=== PATIENT | male | born 1955 | race Caucasian/White ===

== ENCOUNTER 2018-10-24 10:43 | Inpatient (IN) | payer MEDICARE, OTHER ==
[2018-10-24 11:43] LABS: Hemoglobin 10.2 g/dL (14.0-18.0); Mean Corpuscular HGB CONC 33.4 g/dL (32.0-36.0); Mean Corpuscular Hemoglobin 32.9 pg (27.0-31.0); Mean Corpuscular Volume 98.5 fL (78.0-98.0); Mean Platelet Volume 7.7 fL (7.4-10.4); Platelet Count 348 thou/uL (130-400); RBC Distribution Width 13.2 % (11.5-14.5); Red Blood Cell (RBC) Count 3.09 mill/uL (4.70-6.10); White Blood Cell (WBC) Count 15.8 thou/uL (4.8-10.8)
[2018-10-24 11:59] LABS: Band 3 % (5-11); Lymphocytes 11 % (21-51); MDiff Complete? YES; Metamyelocyte 1 % (0-0); Monocytes 5 % (0-10); Myelocyte 2 % (0-0); Neutrophil 78 % (42-75); RBC Morphology Normal
[2018-10-24 12:04] LABS: ALT (SGPT) 40 U/L (8-55); AST (SGOT) 17 U/L (5-34); Albumin 3.6 g/dL (3.4-4.8); Alkaline Phosphatase 1060 U/L (40-150); Anion Gap 22 mmol/L (10-20); BUN (Urea Nitrogen) 64 mg/dL (8.4-25.7); Bilirubin, Total 5.9 mg/dL (0.2-1.2); Calc. Creatinine Clearance 0 mL/min (70-130); Carbon Dioxide 21 mmol/L (23-31); Chloride 88 mmol/L (98-107); Estimated GFR-MDRD 24; Globulin 3.6 g/dL (2.4-3.5); Glucose 198 mg/dL (80-115); Lipase 716 U/L (8-78); Protein, Total 7.2 g/dL (5.8-8.1); Sodium 127 mmol/L (136-145)
[2018-10-24] MEDS ORDERED: Cefepime 2 GM VIAL ONE (12:22)
--- NOTE | 2018-10-24 12:35 | ULT ---
RIGHT UPPER QUADRANT ULTRASOUND: HISTORY: Abdominal pain. TECHNIQUE: Multiple longitudinal and transverse images of the right upper quadrant of the abdomen are obtained u sing a MultiHertz curvilinear transducer. Real-time, color-flow and spectral wave-form Doppler analysis is used to evaluate right upper quadrant. FINDINGS: The liver is unremarkable with no evidence of masses or lesions. No evidence of intrahepatic biliary dilatation is seen. The common bile duct is abnormally dilated, measuring up to 1.2 cm in diameter. The gallbladder demonstrates no obvious evidence of wall thickening. Echogenic foci are s een within the gallbladder lumen, compatible with numerous gallstones. No evidence of pericholecystic fluid is seen. The right kidney contains an area of mixed echogenicity in the upper pole, possibly representing a right renal mass. Correlate with CT. The inferior vena cava is not well visualized. No evidence of ascites is seen. IMPRESSION: 1. Cholelithiasis with possible choledocholithiasis. 2: Area of heterogeneous density, upper pole right kidney, possibly representing a right renal mass. Transcribed Date/Time: 10/24/2018 2:15 PM
[2018-10-24] MEDS ORDERED: metroNIDAZOLE 500 MG/100 ML BAG ONE (13:08)
--- NOTE | 2018-10-24 14:01 | RAD ---
PORTABLE CHEST: 10/24/2018 PROVIDED CLINICAL HISTORY: Abdominal pain. COMPARISON: None. FINDINGS: Evaluation is limited by patient body habitus. The cardiac silhouette appears enlarged. The lungs are hypoinflated but grossly clear. There is no pleural fluid or pneumothorax apparent. IMPRESSION: Hypoinflated examination without evidence for an acute cardiopulmonary process. POS: [facility]
[2018-10-24] MEDS ORDERED: Dextrose 50% Abboject 50 ML SYRINGE SLOW IVP PRN (14:10)
[2018-10-24] MEDS ORDERED: Dextrose 5% in Water 1,000 ML IV PRN (14:10)
[2018-10-24] MEDS ORDERED: Ondansetron PF 4 MG/2 ML Vial ONE (14:37)
[2018-10-24] MEDS ORDERED: Calcium Chloride 1 GM/10 ML Abboject SYRINGE ONE (14:37)
[2018-10-24] MEDS ORDERED: Phenylephrine HCL 10 MG/ML VIAL ONE (14:37)
[2018-10-24] MEDS ORDERED: ePHEDrine 50 MG/ML VIAL ONE (14:37)
[2018-10-24] MEDS ORDERED: Rocuronium Bromide 10 MG/ML (10ML VIAL) ONE (14:37)
[2018-10-24] MEDS ORDERED: PROPOFOL 200 MG/20 ML VIAL ONE (14:37)
[2018-10-24] MEDS ORDERED: Lidocaine 1% PF 5 ML VIAL ONE (14:37)
[2018-10-24] MEDS ORDERED: Glycopyrrolate 0.2 MG/ML 5 ML SYRINGE ONE (14:37)
[2018-10-24] MEDS ORDERED: Dexamethasone 20 MG/5 ML VIAL ONE (14:37)
[2018-10-24 14:54] LABS: PTT 26.7 SEC (22.9-36.1); Prothrombin Time 13.4 SEC (12.0-14.7)
[2018-10-24 16:20] LABS: HBSAg Index 0.36 S/CO (0-0.99); Hep B Surf Ag Non-Reactive S/CO (NonReactive); Hep C IgG Ab Non-Reactive (NonReactive); Hep C Index 0.07 S/CO (0-0.79)
[2018-10-24 16:22] LABS: HBCM Index 0.09 S/CO (0-0.79); Hep A IgM AB Non-Reactive (NonReactive); Hep A IgM S/CO 0.13 S/CO (0-0.79); Hepatitis B Core IgM Abs Non-Reactive (NonReactive)
[2018-10-24] MEDS: Sodium Chloride 0.9% 1,000 ML IV SCH ×2 (16:23→21:39)
[2018-10-24 16:27] LABS: Anion Gap 18 mmol/L (10-20); BUN (Urea Nitrogen) 64 mg/dL (8.4-25.7); Calc. Creatinine Clearance 59 mL/min (70-130); Calcium 8.3 mg/dL (7.8-10.44); Carbon Dioxide 21 mmol/L (23-31); Chloride 94 mmol/L (98-107); Estimated GFR-MDRD 27; Glucose 168 mg/dL (80-115); Potassium 4.2 mmol/L (3.5-5.1); Sodium 129 mmol/L (136-145); Triglycerides 178 mg/dL (Less than 150)
[2018-10-24 16:40] LABS: Free T4 (Free Thyroxine) 1.1 ng/dL (0.70-1.48); Thyroid Stimulating Hormone 0.7644 uIU/mL (0.35-4.94)
--- NOTE | 2018-10-24 17:16 | CT ---
CT Abdomen Pelvis WO Con 10/24/2018 4:28 PM HISTORY: Abdominal pain COMPARISON: None. Technique: Multiple contiguous axial CT images are obtained through the abdomen and pelvis without IV contrast. Coronal reformats are provided. FINDINGS: This examination is limited for the evaluation of solid organs and vascular structures due to the lac k of intravenous contrast. Lower Chest: Atelectasis is present at the right lung base. A calcification is also seen at the right lung bases which may represent either a pleural-based calcification or calcified granuloma. Vascular calcifications are seen in the coronary arteries as well as involving the visualized thoraci c aorta. Abdomen: Liver: within normal limits. Gallbladder: Within normal limits for CT imaging. Pancreas: There is motion artifact, there is questionable minimal inflammatory stranding adjacent to the pancreatic head. Spleen: within normal limits. Adrenals: within normal limits. Kidneys: There is a lobulated cystic mass superior pole right kidney measuring 5.7 cm x 5.1 cm. A few linear septations as well as punctate calcifications are associated with this lesion. This cannot be further characterized on this exam. No hydronephrosis or renal calculus is seen bilaterally. Ureters: No ureteral calculus is seen.. Pelvis: Urinary bladder: within normal limits. Reproductive Organs: No pelvic masses. Lymph Nodes: No enlarged lymph nodes. Bowel: Small amount of retained fecal material seen throughout the colon. Loops of small bowel are no rmal in caliber. Appendix: The appendix is normal in caliber. Peritoneum: No free fluid, free air, or fluid collection. Retroperitoneum: within normal limits. Vessels: Vascular calcifications are seen abdominal aorta involving the iliac arteries.. Abdominal Wall: Tiny fat-containing umbilical hernia is present Bones: Multilevel degenerative changes are seen within the visualized thoracic as well as lumbar spin e. IMPRESSION: 1. Question of minimal stranding adjacent to the pancreatic head. Findings could be related to pancre atitis. Correlation with pancreatic enzymes is recommended. Question of mild inflammatory stranding could be related to motion in this region. 2. Lobulated superior pole right renal cystic lesion/mass. CT abdomen with and without IV contrast is recommended for further characterization to ensure that there is no enhancement. 3. Elevation right hemidiaphragm with volume loss right lung base. 4. No renal or ureteral calculi are seen bilaterally.
[2018-10-24] MEDS ORDERED: Iothalamate Meglumine 60% 50 ML VIAL FS ONE (17:39)
--- NOTE | 2018-10-24 18:10 | HP ---
SURGERY ATTENDING: Dr. Riccardo Small. HISTORY OF PRESENT ILLNESS: Mr. Castillo is a 63-year-old male who presented with a past medical history of hypertension, diabetes, hospitalization for rhabdomyolysis 5 years ago, who has had indolent and recurrent low level abdominal pain for nearly a year, associated with subjective fevers, generalized malaise, acutely worse over the last two weeks. He has also had 100-pound weight loss. He had a colonoscopy two years ago secondary to hematochezia without any findings. He does endorse some dyspnea on exertion recently. The patient's PCP found elevated liver profile including elevated bilirubin, alkaline phosphatase that accompanied with his generalized malaise and weakness, he was brought to the emergency department for further evaluation. In the emergency department, the patient was found to be hypotensive, heart rate was normal. He had hyperglycemia, acute kidney injury, alkaline phosphatase was over 1000, bilirubin was over 5. The patient is jaundiced. Creatinine was 2.7, producing minimal urine. He had a leukocytosis. Lipase was 700. Ultrasound demonstrated a dilated common bile duct with cholelithiasis, concern for choledocholithiasis. He was given cefepime and Flagyl in the emergency department and we were consulted for further management. I have seen the patient in the emergency department. I evaluated him, reviewed his imaging, discussed the case with Emergency Department physician. I have ordered 2 L of fluid. His MAP is 64 upon my arrival, systolic in the 80s, heart rates in the 70s, saturating well on room air. Chest x-rays reviewed. EKGs reviewed. Does appear to have biliary obstruction based on laboratory data. The patient is nontoxic appearing, however, he really has no abdominal pain for me, I have ordered additional liter of fluid as well as maintenance fluids. There was a mention of a renal mass. Therefore, a dedicated renal ultrasound has been ordered. Requested a repeat lactate as his initial lactic acid was 3. The patient states that he has no chest pain, no shortness of air at this time. He really has no abdominal pain at this time. He has had no diarrhea. No nausea. No vomiting. No rashes. No lower extremity edema. Just the abdominal pain that comes and goes, worse postprandially. REVIEW OF SYSTEMS: Pertinent positive and negative as per the HPI, otherwise regarded as negative. PAST MEDICAL HISTORY: Hypertension, diabetes, and rhabdomyolysis. Last oral intake was last night. PAST SURGICAL HISTORY: Denies all. ALLERGIES: TO PENICILLIN CAUSES A RASH. SOCIAL HISTORY: The patient is a lifelong nonsmoker. He dips one dip snuff daily. Alcohol; he drinks 1 to 2 rum drinks daily. Uses a cane to get about. Lives in [place], [place]. His daughter is one of the nurses here. 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 FAMILY HISTORY: His mother of a brain tumor at age 66. His father in his 30s or 40s of an CT. MEDICATIONS: 1. Metformin 1000 mg b.i.d. 2. Aspirin 81 mg daily. 3. Amlodipine 5 mg daily. 4. Protonix 40 mg daily. 5. Lisinopril/hydrochlorothiazide daily. 6. Simvastatin 20 mg daily. 7. Atenolol 50 mg daily. PHYSICAL EXAMINATION: VITAL SIGNS: Temperature is 97.5, MAP of 64, heart rate is 68, breathing 18 times per minute, saturating 100% on room air. GENERAL: He is an obese 63-year-old male sitting up in bed, no acute distress. HEENT: Normocephalic, atraumatic. Trachea is midline. He does have scleral icterus appreciated. Pupils are equal and midline. His mucous membranes are dry. NECK: He has no JVD and trachea is midline. RESPIRATORY: Equal rise and fall, bilateral breath sounds. Clear to auscultation upper and lower bilaterally. CARDIOVASCULAR: Regular rate and rhythm. No murmur. He has strong pulses and no edema. ABDOMEN: Obese, but is soft. He has no tenderness. No guarding. No rigidity. Specifically, he has no pain with deep palpation of the right upper quadrant. He has no CVA tenderness. Pelvis is stable. MUSCULOSKELETAL: The patient is able to move his extremities. He has abrasion about the left knee. SKIN: Jaundiced, warm and dry. PSYCH: Normal mood and affect. NEUROLOGIC: Alert and oriented to person, place, time, and event. Moves all of his extremities. LYMPHATIC: Unable to appreciate any supraclavicular, cervical, anterior or posterior chain lymphadenopathy. No umbilical lymphadenopathy appreciated. DIAGNOSTIC DATA: Laboratory date: White blood cell count of 15,800 and platelets of 348. Hemoglobin and hematocrit 10.2 and 30.5 respectively. Chemistry; sodium is 127, potassium is 4.0, chloride is 88, CO2 of 21, creatinine is 2.71, BUN is 64, anion gap of 22, glucose is 198, lactic acid 3.0, calcium 10.0, total bilirubin is 5.9, AST and ALT 17 and 40 respectively, alkaline phosphatase is 1060. BNP 274, lipase of 716. Imaging data from today, one view chest x-ray is limited by technique, but does not show any acute processes. Abdominal ultrasound today shows possibly a right renal mass, also has cholelithiasis with possible choledocholithiasis. CBD is 1.2 cm. ASSESSMENT: 1. Severe sepsis without evidence of septic shock, likely secondary to intraabdominal pathology. 2. Possible choledocholithiasis. 3. Obstructive biliary disease- #2 above vs neoplastic in nature. 4. Hyperglycemia in the setting of diabetes. 5. Acute pancreatitis, likely secondary to #3 above. 6. Acute kidney failure. 7. High gap metabolic acidosis. 8. Hypochloremic hyponatremia. PLAN: 1. We will admit the patient to [facility]. 2. Additional 1 L of fluid for a total of three followed by normal saline at 100 mL/h. 3. We will repeat BMP at that time. 4. CT abdomen and pelvis without contrast. 5. GI discussed the case with Dr. Figueredo. We appreciate recommendations. 6. Continue cefepime and Flagyl for now. 7. Blood cultures x2. 8. Obtain coag studies. 9. Check TSH and free T4 given hyponatremia. 10. Check cortisol level. 11. Check hepatitis panel. 12. Electrolyte replacement protocol as needed, utilizing caution given renal failure. 13. Repeat lactate now for sepsis protocol. 14. Check LDH. 15. Point of care glucose and sliding scale insulin. 16. N.p.o. 17. Obtain blood cultures x2. 18. I have discussed the central venous access with the patient. We will maintain a mean arterial pressure, if greater than 65, if he does dip again, likely will need the same and vasopressors. 19. Diet will be n.p.o. 20. Activity is going to be rest. 21. Full code. 22. Access for peripheral IV. 23. Prophylaxis will be famotidine and SCDs, with holding chemical DVT prophylaxis secondary to possible procedure. 24. Obtain bilateral renal ultrasound. DISPOSITION: [facility] for now. I have updated the patient and the patient's daughter at the bedside. I have answered all questions. I have coordinated the care with the [facility] staff, ER staff, GI. The patient was seen by Dr. Small, can be updated as needed. Job ID: [id number] MTDD
[2018-10-24] MEDS ORDERED: Indomethacin 50 MG SUPP ONE (18:27)
[2018-10-24] MEDS ORDERED: Fentanyl 100 MCG/2 ML VIAL ONE (18:28)
[2018-10-24] MEDS ORDERED: Promethazine HCl 25 MG/ML VIAL SLOW IVP PRN (19:55)
[2018-10-24] MEDS ORDERED: Ondansetron HCl/PF 4 MG/2 ML Vial IVP PRN (19:55)
[2018-10-24] MEDS ORDERED: Promethazine HCl 25 MG/ML VIAL IM PRN (19:55)
--- NOTE | 2018-10-24 20:51 | RAD ---
ERCP: 10/24/18 HISTORY: Abdominal pain. Question of pancreatitis. Three views are presented for interpretation. These show filling of a borderline sized common bile duct. The distal common duct is never well opaci fied. I do not see any definite stones. IMPRESSION: Borderline size common duct. POS: [facility]
[2018-10-24] MEDS: Cefepime 2 GM in Sodium Chloride 0.9% 100 ML IVPB SCH (21:36)
[2018-10-24] MEDS: metroNIDAZOLE 500 MG in Premix Bag 1 BAG IVPB SCH (21:37)
--- NOTE | 2018-10-24 21:47 | CON ---
DATE OF CONSULTATION: 10/24/2018 REASON FOR CONSULTATION: Concern for cholangitis, requesting ERCP. HISTORY OF PRESENT ILLNESS: Mr. Christian Castillo is a very pleasant 63-year-old gentleman with a history of obesity, hypertension, and hyperlipidemia. He has seen Dr. Jones for GI in the past. He had a colonoscopy about 2 years ago, which was evidently unremarkable. He has no prior history of pancreatitis, liver or gallbladder disease. He states that over about the past 16 months, he has gradually lost 100 pounds. This has been essentially unintentional. For several months, he has had intermittent waxing and waning upper abdominal pain and nausea. This has been especially prominent over the past 3-4 months though there has been no vomiting. Just over the past couple of weeks, he has noticed that he has been a bit jaundiced. The abdominal pain and nausea were more significant within the past week. He had outpatient labs, which demonstrated elevation in LFTs and that prompted his admission through the emergency department today. He has been evaluated by the surgical service. He has a total bilirubin elevation to 5.9 with alkaline phosphatase to 1060. An abdominal ultrasound demonstrated cholelithiasis and common bile duct dilation to 1.2 cm. The patient actually presented significantly hypotensive and was treated with aggressive IV fluid resuscitation. Initial blood pressure was 70/52, systolic pressures now above 100. He was admitted to the [facility]. He is receiving ceftriaxone and Flagyl. We are consulted due to concern for his presentation with sepsis and obstructive jaundice, with concern for cholangitis. REVIEW OF SYSTEMS: Full review of systems including constitutional, head, eyes, ears, nose, throat, GI, , cardiovascular, respiratory, musculoskeletal, neurologic systems is negative except as noted in the HPI. PAST MEDICAL HISTORY: Obesity, hypertension, hyperlipidemia, GERD. Colonoscopy [address] Jones, evidently unremarkable. ALLERGIES: PENICILLIN. MEDICATIONS: 1. Atenolol. 2. Protonix 40 mg daily. 3. Metformin. 4. Aspirin. 5. Amlodipine. 6. Zocor. 7. Lisinopril/hydrochlorothiazide. SOCIAL HISTORY: He does drink a little bit of alcohol daily less than 5 drinks per day. He chews tobacco. FAMILY HISTORY: Noncontributory. PHYSICAL EXAMINATION: VITAL SIGNS: Temperature 97.5, blood pressure currently 102/76, initially blood pressure was 70/52, pulse 81, 100% oxygen saturation on room air. GENERAL: Obese 63-year-old man. He is grossly jaundiced. He is in no acute distress. MENTAL: Alert and oriented. EYES: He has bilateral scleral icterus. Extraocular movements intact. ENT: Mucous membranes moist. No oral lesions. LYMPHATICS: No submandibular or supraclavicular lymphadenopathy. ENDOCRINE: Thyroid nontender to palpation. HEART: Regular rate and rhythm. LUNGS: Clear to auscultation bilaterally. ABDOMEN: Obese, bowel sounds present, soft, some mild tenderness to palpation across the upper abdomen, but no guarding or rebound tenderness. EXTREMITIES: No peripheral edema. VESSELS: Radial pulses 2+ bilaterally. NEUROLOGIC: Cranial nerves 2-12 intact bilaterally. No focal deficits. LABORATORY STUDIES: WBC is elevated to 15.8, hemoglobin 10.2, platelets 348. INR 1.0, BUN 64, creatinine 2.44, total bilirubin 5.9, alkaline phosphatase 1060, AST 17, ALT 40, albumin 3.6. INR is 1.0, BUN 64, creatinine 2.44. Lactic acid initially 3.0, now down to 1.4. Lipase elevated to 716. Troponin negative. Viral hepatitis serologies all negative. IMAGING STUDIES: 1. Abdominal ultrasound shows cholelithiasis and common bile duct dilation to 1.2 cm. There is a possible right renal mass on the ultrasound. 2. Chest x-ray shows no acute processes. 3. His CT of the abdomen and pelvis demonstrates some minimal stranding around the pancreatic head. There is a 5.7 cm right-sided renal mass. No comment on biliary dilation on the CT. ASSESSMENT/PLAN: 1. Obstructive jaundice. 2. Cholelithiasis with possible choledocholithiasis, based on biliary dilation. 3. Sepsis. 4. Unintentional weight loss. The patient's presentation with sepsis in the context of significant liver function tests elevation and upper abdominal pain, is all concerning for possible cholangitis. I discussed with the patient that endoscopic retrograde cholangiopancreatography is indicated on an urgent basis to decompress the biliary system. He has responded well to initial resuscitation and antibiotics should be continued. Possibilities would include choledocholithiasis, retained common bile duct stone, versus more worrisome process such as pancreatic or biliary malignancy or ampullary stenosis. We will further evaluate on endoscopic retrograde cholangiopancreatography, which we are planning for later this evening. Until then, continue antibiotics and supportive care. Thank you for the consultation. Please call anytime with questions or concerns. Job ID: [id number]
--- NOTE | 2018-10-25 01:26 | OP ---
DATE OF PROCEDURE: 10/24/2018 ASSEMBLER CAMPER SURGEON: None. PROCEDURES PERFORMED: Endoscopic retrograde cholangiopancreatography with biliary sphincterotomy. INDICATION: A 63-year-old man with obstructive jaundice based on elevated total bilirubin and dilated common bile duct, who presented with sepsis, all concerning for potential cholangitis with choledocholithiasis. MEDICATIONS: 1. See Anesthesia record. 2. Indomethacin 100 mg per rectum. FINDINGS: After discussion of the risks, benefits, and alternatives of the procedure, informed consent was obtained and witnessed. Pre-endoscopic cardiopulmonary examination was satisfactory. Time-out was performed before sedation was achieved. Sedation was achieved with Anesthesia assistance in the endoscopy unit. The patient was placed in a semi-prone position on the fluoroscopy table. A Pentax adult side-viewing duodenoscope was advanced down the mouth, past the esophagus and stomach, and into the second portion of the duodenum. Indirect views of the gastric and duodenal mucosa were normal. The ampulla was brought into view with the endoscope in the short position. The ampulla was prominent in appearance, but otherwise appears normal. Using a triple lumen dome-tipped sphincterotome and a 0.035 guidewire, I selectively cannulated the common bile duct. The guidewire was passed up into the right intrahepatic system. Cholangiogram was then performed. Cholangiogram demonstrated a dilated common bile duct throughout its entire length, dilated up to at least 15 mm. The cystic duct did not fill. The right and left intrahepatic ducts did fill and did not appear to be dilated. There was no filling defect visualized throughout the biliary system that I can see. At this point, the sphincterotome was withdrawn to the level of the ampulla. A generous biliary sphincterotomy was then performed. Following sphincterotomy, we performed a wire exchange, exchanging the sphincterotome for a 12 to 15 mm extraction balloon. Multiple passes were made to sweep the common bile duct with the balloon fully inflated. The balloon passed easily through the ampulla and through the entire common bile duct. There were no stones or sludge extracted, just clear appearing bile. Occlusion cholangiogram was then performed, and this again just demonstrated a dilated common bile duct without any filling defects. Given the good result with the sphincterotomy and the ease with which the balloon passed through the entire common bile duct and the ampulla, I elected not to place any biliary stent with this procedure. The working apparatus was completely withdrawn. The endoscope was completely withdrawn suctioning out excess air and fluid. Postprocedure fluoroscopic images demonstrated no retroperitoneal or subdiaphragmatic free air. The patient tolerated the procedure well. There were no immediate postprocedure complications. IMPRESSION: 1. Dilated common bile duct to 15 mm throughout most of its length, with no evidence of any filling defect or stricture visualized. 2. Prominent but otherwise normal-appearing ampulla. 3. Multiple balloon sweeps of the common bile duct performed, with only clear bile extracted, balloon passing easily through the entire common bile duct and ampulla. RECOMMENDATIONS: 1. Continue antibiotics for now. 2. Trend the LFTs. 3. Surgery evaluation. The patient will need cholecystectomy at some point. Please call anytime with questions or concerns. Job ID: [id number]
[2018-10-25] MEDS: metroNIDAZOLE 500 MG in Premix Bag 1 BAG IVPB SCH ×2 (05:26→14:29)
[2018-10-25 05:27] LABS: Band 4 % (5-11); Hemoglobin 8.2 g/dL (14.0-18.0); Lymphocytes 12 % (21-51); MDiff Complete? YES; Mean Corpuscular HGB CONC 33.7 g/dL (32.0-36.0); Mean Corpuscular Hemoglobin 33.8 pg (27.0-31.0); Mean Platelet Volume 6.9 fL (7.4-10.4); Monocytes 3 % (0-10); Neutrophil 81 % (42-75); Platelet Count 288 thou/uL (130-400); Platelet Morphology Comment Appears Adequate; RBC Distribution Width 13.1 % (11.5-14.5); Red Blood Cell (RBC) Count 2.42 mill/uL (4.70-6.10); White Blood Cell (WBC) Count 11.2 thou/uL (4.8-10.8)
[2018-10-25] MEDS: HumaLOG 300 UNITS/3 ML VIAL SC PRN ×3 (05:27→16:16)
[2018-10-25] MEDS: Cefepime 2 GM in Sodium Chloride 0.9% 100 ML IVPB SCH ×2 (05:27→14:29)
[2018-10-25 05:34] LABS: ALT (SGPT) 29 U/L (8-55); AST (SGOT) 13 U/L (5-34); Albumin 3.2 g/dL (3.4-4.8); Alkaline Phosphatase 759 U/L (40-150); Anion Gap 22 mmol/L (10-20); BUN (Urea Nitrogen) 67 mg/dL (8.4-25.7); Bilirubin, Total 3.6 mg/dL (0.2-1.2); Calc. Creatinine Clearance 65 mL/min (70-130); Calcium 8.8 mg/dL (7.8-10.44); Carbon Dioxide 16 mmol/L (23-31); Chloride 97 mmol/L (98-107); Estimated GFR-MDRD 30; Globulin 3.1 g/dL (2.4-3.5); Glucose 230 mg/dL (80-115); Lipase 223 U/L (8-78); Potassium 4.6 mmol/L (3.5-5.1); Protein, Total 6.3 g/dL (5.8-8.1); Sodium 130 mmol/L (136-145)
[2018-10-25 05:41] VITALS: BMI 37.8
--- NOTE | 2018-10-25 08:40 | ULT ---
RENAL SONOGRAM: HISTORY: Kidney mass. COMPARISON: CT abdomen from 10/24/2018 FINDINGS: The right kidney measures up to 12.2 cm in length. At the superior pole, a partially exophytic, hete rogeneous, hypoechoic mass measures up to 5.4 x 4.9 x 4.7 cm in greatest diameters. It is not defini tely cystic on sonogram. No hydronephrosis. Diffuse cortical thinning. The left kidney is 12.2 cm with diffuse cortical thinning. No focal mass or hydronephrosis apparent. The urinary bladder is distended without focal abnormality. IMPRESSION: Heterogeneous mass at the superior pole, right kidney, persists. Favored to not be cystic on sonogra m. Renal cell neoplasm is of primary concern. Please considered dedicated CT kidneys, with and with out IV contrast, for better characterization. If intravenous contrast cannot be given, please consid er MRI of the kidneys. POS: [facility]
[2018-10-25] MEDS: Famotidine 20 MG TAB PO SCH (09:16)
[2018-10-25] MEDS: Thiamine 100 MG TAB PO SCH (09:16)
[2018-10-25] MEDS: Folic Acid 1 MG TAB PO SCH (09:16)
[2018-10-25] MEDS: Multivit, Therapeutic 1 TAB PO SCH (09:16)
[2018-10-25] MEDS ORDERED: Dextrose 50% Abboject 50 ML SYRINGE SLOW IVP PRN (09:52)
[2018-10-25] MEDS ORDERED: Dextrose 5% in Water 1,000 ML IV PRN (09:52)
[2018-10-25 12:31] LABS: Iron 93 ug/dL (65-175); Iron Binding Capacity, Total 155 mcg/dL (261-462)
[2018-10-25] MEDS: Sodium Chloride 0.9% 1,000 ML IV SCH (13:08)
[2018-10-25] MEDS: Oxazepam 10 MG CAP PO SCH (14:29)
--- NOTE | 2018-10-25 17:55 | CON ---
DATE OF CONSULTATION: CONSULTING PROVIDER: Garo Howard MD. Dr. Small, Trauma Service. REASON FOR CONSULTATION: Acute on chronic kidney disease. IMPRESSION: 1. Acute on chronic kidney disease. This is likely multifactorial including, but not limited to, the following;. a. Some component of prerenal state compounded by potential obstructive uropathy. b. Cytokine mediated injury in the context of infection. c. Progression of baseline chronic kidney disease. 2. Exophytic mass. PLAN: 1. Renally dose all medications for low GFR. 2. Re-evaluate renal function in this patient by checking the phosphorus and the parathyroid hormone. 3. Iron studies due to significant iron deficiency in this patient. 4. Continue gentle rehydration for now. HISTORY OF PRESENT ILLNESS: A 63-year-old gentleman who presented here with abdominal discomfort, got diagnosed with gallbladder problem. However, the patient as per laboratory investigation was noted with decreased GFR. As a result of these findings, decision has been taken to involve Renal in the management of this case. PAST MEDICAL HISTORY: Significant for obesity, hypertension, dyslipidemia, and reflux disease. MEDICATIONS: Reviewed and as documented on [employer]. ALLERGIES: NO KNOWN DRUG ALLERGIES. FAMILY HISTORY: Not significantly related to present illness. SOCIAL HISTORY: Significant for alcohol use. REVIEW OF SYSTEMS: As documented in the body of the history. All other systems were reviewed and found not to be significantly related to present illness. PHYSICAL EXAMINATION: GENERAL: The patient was found to be ill looking. VITAL SIGNS: Noted with the following vital signs; afebrile, blood pressure 123/67, pulse 78, respiratory rate of 18, and O2 saturations are 99%. HEENT: Remarkable for dry oral mucosa. No conjunctival injection or icterus. NECK: Supple. CARDIOVASCULAR: First and second heart sounds were heard. RESPIRATORY: Shows some rales anteriorly. DIGESTIVE: Revealed a benign abdomen. Positive bowel sounds. EXTREMITIES: No peripheral edema. SKIN: No new gross rash. LYMPHATICS: No peripheral lymphadenopathy. SUMMARY: A 63-year-old gentleman who presented here with abdominal discomfort in the context of gallbladder disease, incidentally noted with elevated creatinine, thus the need for renal consultation. ADDENDUM: In terms of all the suspicious lesion found on ultrasound. The imaging study of choice will be MRI unless the renal function improves, status post Bonds catheterization in view of potential obstructive uropathy and significant improvement in the renal function noted. If significant improvement in the renal function is noted, then the patient can safely undergo CT scan with IV contrast. Otherwise, the patient stands significant risk of deterioration in the renal function if exposed to contrast at this point. Job ID: [id number]
--- NOTE | 2018-10-25 19:25 | PRG ---
DATE OF SERVICE: 10/25/2018 SUBJECTIVE: Mr. Christian Castillo is a 63-year-old male, who was admitted, hospital day 2 for abdominal pain, concern for choledocholithiasis and pancreatitis. Additionally, the patient was found to have a renal mass. The patient underwent ERCP last night. Upon my evaluation this morning, the patient reports minimal abdominal pain. He vocalized no other complaints. OBJECTIVE: VITAL SIGNS: Temperature, afebrile; blood pressure 104/51; respiratory rate of 19; pulse 82; O2 saturation 100% on room air. GENERAL: Elderly appearing male, in no acute distress, resting in bed. PULMONARY: Normal work of breathing. Symmetric rise. CARDIOVASCULAR: Regular rate and rhythm. GI: Abdomen is soft, nontender to palpation. No signs of peritonitis. No palpable organomegaly. MUSCULOSKELETAL: Moves all extremities x4. NEUROLOGIC: No focal deficit noted. LABORATORY FINDINGS: WBC 11.2, hemoglobin 8.2, hematocrit 24.2, platelet count 288. Sodium 130, potassium 4.6, chloride 97, carbon dioxide 16, BUN 67, creatinine 2.23, glucose 230, AST 13, ALT 29, alkaline phosphatase 759, T bilirubin 3.6. Lipase 223. RADIOGRAPHIC FINDINGS: Renal ultrasound demonstrated a mass on the superior pole of the right kidney, concerning for renal cell carcinoma. ASSESSMENT: 1. Abdominal pain with elevated LFTs, likely multifactorial. 2. Possible cholecystitis versus obstructive biliary disease secondary to neoplasm. 3. History of diabetes with hyperglycemia. 4. Acute pancreatitis, improving. 5. Acute renal failure, mild improvement. 6. Hypochloremic hyponatremia. 7. Metabolic acidosis. PLAN: Continue IV fluid and hydration. The patient can have a clear liquid diet for now. Aggressive sliding scale insulin. Hospital Medicine consult for medical management given multiple comorbidities. Nephrology consult for acute renal failure. Urology consult for renal mass. Echocardiogram to evaluate for any underlying cardiac dysfunction given likelihood of surgical intervention. Continue to monitor urine output. Plan of care was discussed with the patient and family at bedside, and all questions were answered at the time of this dictation. The patient's plan was discussed with the patient's nurse. The patient was seen and evaluated with Dr. Small. Job ID: [id number] [facility]
[2018-10-25] MEDS: Heparin 5,000 UNITS/ML VIAL SC SCH (20:19)
[2018-10-25] MEDS: Insulin Regular 300 UNITS/3 ML VIAL SC PRN (20:23)
[2018-10-25] MEDS ORDERED: Insulin Glargine 15 UNITS in Pre-Filled Syringe SC SCH (21:00)
[2018-10-26] MEDS ORDERED: metroNIDAZOLE 500 MG/100 ML BAG ONE (05:15)
--- NOTE | 2018-10-26 08:26 | CON ---
DATE OF CONSULTATION: REASON FOR CONSULTATION: Medical management. REASON FOR ADMISSION: Abdominal pain and weight loss. HISTORY OF PRESENT ILLNESS: Mr. Castillo is a pleasant 63-year-old gentleman, who has a history of hypertension and diabetes mellitus. He says over the course of the last few months he has been having abdominal pain as well as nausea typically after he eats. He says that in the last year or so he has lost about 100 pounds. He says that he feels sick and has had no appetite and has had subjective fever off and on. He came to the ER. In his initial presentation, he was hypotensive and found to be jaundiced. He also had an alkaline phosphatase greater than a 1000, as well as acute kidney injury. An abdominal ultrasound was done, which demonstrated a dilated common duct, which was concerning for choledocholithiasis. He was admitted to the Surgery Service and GI was consulted. He underwent ERCP as well as sphincterotomy and currently he says his symptoms are actually better. He says the abdominal pain is improved, but he still has no appetite. He had pretty much daily nausea, which is actually improved as well. Also during his workup, it was found that he had a fairly large mass on the superior pole of the right kidney and we are being consulted for medical management. REVIEW OF SYSTEMS: CONSTITUTIONAL: There has been subjective fever, but no chills, no night sweats. He has had significant weight loss of 100 pounds over the last year. HEENT: No visual changes. No headaches. No dizziness. No sore throat. No rhinorrhea. No neck pain. No adenopathy. PULMONARY: No hemoptysis. No cough. No wheezing. CARDIOVASCULAR: He denies any chest pain. No shortness of breath. No PND. No orthopnea. GASTROINTESTINAL: As in the history of present illness. He also mentions alternating constipation and diarrhea, but no hematemesis, no melena. GENITOURINARY: No urinary frequency, hematuria or hesitancy. MUSCULOSKELETAL: He does complain of pain in his right knee. He says he needs a "knee replacement" but no joint pains. No swelling. SKIN AND INTEGUMENT: No skin changes or rash. PSYCHIATRIC: No symptoms of anxiety or depression. ENDOCRINE: No heat or cold intolerance. No polyuria. No polydipsia. PAST MEDICAL HISTORY: Significant for hypertension and diabetes mellitus type 2. PAST SURGICAL HISTORY: Negative. ALLERGIES: PENICILLIN, WHICH CAUSES A RASH. SOCIAL HISTORY: He is a nonsmoker. He drinks about 1-2 rum drinks a day. He is a former trash collector truck driver. He is and has 2 children and his daughter is a nurse here on the 3rd floor. FAMILY HISTORY: Significant for his mother having a brain tumor and dying at age 66. Father had an [place]. MEDICATIONS: Include: 1. Simvastatin 20 mg daily. 2. Protonix 40 mg daily. 3. Metformin 1000 mg twice daily. 4. Lisinopril/hydrochlorothiazide 20/12.5 daily. 5. Atenolol 50 mg daily. 6. Aspirin 81 mg daily. 7. Amlodipine 5 mg daily. PHYSICAL EXAMINATION: GENERAL: He is alert and oriented. He appears to be in no acute distress. He is well developed and well nourished. VITAL SIGNS: Blood pressure was 96/60, heart rate 80, respiratory rate of 22, temperature is 97.2. HEENT: His pupils are equal, round, and reactive. Extraocular muscles are intact. Sclerae mildly jaundiced. Throat, there is no erythema, no exudates. NECK: There is no adenopathy, no bruits. LUNGS: Clear to auscultation. There is no wheezing, no rales, no rhonchi. CARDIOVASCULAR: He has a normal S1, S2. I did not appreciate an S3 or S4. No murmurs, clicks or rubs. ABDOMEN: Obese, it is soft, it is nontender and nondistended. Positive for bowel sounds. No rebound. No guarding. No organomegaly. EXTREMITIES: He has some non-pitting edema in both lower extremities, primarily in the calves. No calf tenderness. No erythema or warmth. NEUROLOGIC: His cranial nerves 2 through 12 are grossly intact. Muscle strength is 5/5. SKIN AND INTEGUMENT: No skin changes. No rash. LABORATORY DATA: From today, he had a sodium of 130, potassium 4.6, chloride 97, CO2 is 16, BUN of 67, creatinine 2.23, glucose is 230. He had a white blood cell count of 11.2, hemoglobin 8.2, hematocrit is 24.2, and platelet count is 288. INR is 1.0. ASSESSMENT: This is a pleasant 63-year-old gentleman, who is currently being evaluated for jaundice as well as abdominal pain and weight loss, which is currently being evaluated by Gastroenterology as well as General Surgery. He is status post endoscopic retrograde cholangiopancreatography with sphincterotomy and will likely need to have a cholecystectomy at some time as his symptoms are suspicious for gallbladder disease. This is being managed by GI. 1. Diabetes mellitus. We will place him on a low-dose long-acting insulin as well as a sliding scale. This is while he is taking clear liquids. This may need to be adjusted later. If his renal function improves, then likely he can be restarted on metformin. 2. Hypertension. Currently his blood pressure is low; therefore, we will hold his antihypertensive medications. 3. Deep venous thrombosis prophylaxis. This will be done with subcutaneous heparin and he will also be placed on gastrointestinal prophylaxis. 4. Renal mass. Urology has been consulted for this evaluation. The patient also has a mild hyponatremia likely due to renal disease. We will continue gentle hydration for this and hopefully, this should correct. We will be happy to follow along with you. Job ID: [id number]
[2018-10-26] MEDS ORDERED: Clindamycin/D5W 600 mg/50 ml Premix Bag ONE (08:53)
[2018-10-26] MEDS ORDERED: Insulin Glargine 15 UNITS in Pre-Filled Syringe SC SCH (09:00)
[2018-10-26] MEDS ORDERED: Bupivacaine/Epinephrine 0.25% 30 ML VIAL ONE (09:09)
[2018-10-26] MEDS: Sodium Chloride 0.9% 1,000 ML IV SCH ×4 (09:09→22:32)
[2018-10-26] MEDS: Cefepime 2 GM in Sodium Chloride 0.9% 100 ML IVPB SCH (09:10)
[2018-10-26] MEDS: metroNIDAZOLE 500 MG in Premix Bag 1 BAG IVPB SCH (09:11)
[2018-10-26] MEDS ORDERED: Fentanyl 250 MCG/5 ML VIAL ONE (09:11)
[2018-10-26] MEDS: Oxazepam 10 MG CAP PO SCH (09:11)
[2018-10-26] MEDS ORDERED: Albuterol Sulfate HFA (OR ONLY) ONE (09:20)
[2018-10-26] MEDS ORDERED: EPINEPHrine 1 MG/ML AMP ONE (09:31)
--- NOTE | 2018-10-26 11:09 | CON ---
DATE OF CONSULTATION: 10/25/2018 CONSULTING: [facility]. REASON FOR CONSULTATION: Renal mass. HISTORY OF PRESENT ILLNESS: Mr. Castillo is a 63-year-old white male, who was admitted to the ICU through the ER secondary to complete liver failure with sepsis secondary to possible choledocholithiasis. During his workup, it was noted that he had an approximately 5.6 cm renal mass on the upper pole of his right kidney. As a result, I was consulted for further assistance on this issue. The patient underwent a noncontrast CT scan due to concurrent renal failure that had happened with his sepsis. It was questionable whether this was a cystic mass versus a solid mass. A renal ultrasound was obtained, which demonstrates that this is most likely a solid mass rather than a cystic mass. He continues to be in renal failure at this time, but is still producing urine. He also has what appears to be acute pancreatitis and hyperglycemia in the setting of diabetes with metabolic acidosis. On my discussion with the patient, he states that he has been having a little bit of back pain, but this is probably secondary to a work injury. He denies any specific flank pain on the right side, has no history of hematuria prior to his hospitalization. There is no family history of kidney cancer. He denies any history of kidney stones, UTIs, or significant voiding problems. PAST MEDICAL HISTORY: 1. Hypertension. 2. Diabetes. 3. History of rhabdomyolysis. PAST SURGICAL HISTORY: None. ALLERGIES: PENICILLIN. HOME MEDICATIONS: 1. Aspirin. 2. Simvastatin. 3. Protonix. 4. Lisinopril/HCTZ. 5. Amlodipine. 6. Atenolol. 7. Metformin. FAMILY HISTORY: Significant for mother who of a brain tumor. Father of an [place]. No history of kidney cancer. SOCIAL HISTORY: The patient is a lifelong smoker. He still dips snuff, drinks 1-2 rum alcoholic drinks a day. Denies illicit drug use. He is currently retired. His daughter is one of the nurses on the surgical floor. REVIEW OF SYSTEMS: A 12-point review of systems was reviewed and negative except for what was commented on the HPI or below. Specifically, the patient is still complaining of abdominal discomfort and pain, mild nausea, no vomiting. No fevers. No chest pain or shortness of breath. He has mild malaise. Remainder of 12-point review of systems reviewed and otherwise negative. PHYSICAL EXAMINATION: VITAL SIGNS: Temperature 97.7, pulse 71, respirations 18, blood pressure 116/77, and saturation 98% on room air. GENERAL: No apparent distress. Appears stated age. Morbidly obese. No apparent distress. Conversant. HEENT: Normocephalic, atraumatic. Pupils symmetric and round. Sclerae minimally icteric. Trachea midline. Some decreased hearing. CHEST: No increased work of breathing. Bibasilar crackles, otherwise symmetric expansion of the lungs. CARDIOVASCULAR: Regular rate and rhythm. Normal S1 and S2. Symmetric pulses. ABDOMEN: Soft, nontender, and nondistended. Positive bowel sounds. Mild epigastric sensitivity, but no actual tenderness. No rebound, peritoneal or guarding signs. No scars. No suprapubic tenderness. No hernias. : Bonds catheter in place secured with a StatLock with orange-colored urine. Testes are bilaterally descended. No edema. RECTAL: Deferred. EXTREMITIES: 2+ edema bilaterally. No clubbing or cyanosis. MUSCULOSKELETAL: No joint deformities or joint erythema noted. Moves all extremities equally. NEUROLOGIC: Cranial nerves 2 through 12 appear grossly intact. No focal or sensory motor deficits identified. SKIN: Warm and dry. No rashes or lesions. Good turgor. LYMPH NODES: No axillary, supraclavicular, cervical, or inguinal lymph nodes palpable. PSYCHIATRIC: Alert, oriented x3. Appropriate mood and affect. LABORATORY EVALUATION,: The full set of labs are in the [employer] [facility], which I have reviewed. Of note, the patient's sodium is 130, creatinine of 2.23, glucose of 230, alkaline phosphatase is 759, bilirubin 3.6. White count 11.2, hemoglobin of 8, platelet count of 288. CT from October 24 demonstrates a lobulated superior pole right renal cystic lesion or mass, which cannot be fully characterized due to lack of contrast. No renal or ureteral calculi noted. Some stranding adjacent to the pancreatic head. No lymphadenopathy. Mass measures 5.7 x 5.1 cm. Renal ultrasound done today demonstrates heterogeneous mass at the superior right pole of the right kidney, favored to be solid rather than cystic. ASSESSMENT AND PLAN: A 63-year-old white male with a likely solid upper pole right renal mass. This carries an approximately 90% chance of being malignant with a 10% chance of being benign. Given the patient's younger age, partial nephrectomy would be favored due to the size of the mass. If the mass was smaller, biopsy could be favored to see if the mass was benign, but I would give consideration to removal of this mass given the size. At the current time, I do not think the patient is a suitable candidate for surgery given that he is just recovering from a renal injury attempting to either remove an entire kidney or even undergo a partial nephrectomy would be potentially damaging or could cause serious renal injury and potential need for dialysis permanently in the future. Instead, I would rather let the patient recover from his liver failure and renal insufficiency, and once he has fully recovered, I would favor for an open retroperitoneal partial nephrectomy to spare as many nephrons as possible. In the meantime, while the patient is in the hospital, we will allow him to recover some and when he is ready for discharge, I will obtain a bone scan. A chest x-ray, which has already been done on October 24 did not demonstrate any concerns for metastatic disease. Once the patient has been discharged from the hospital and has had stabilization of his creatinine and is medically cleared by a small appliance assembly supervisor and his primary care doctor, and his liver appears to be working as well as possible with all other problems corrected including his hyperglycemia, then I would make plans for am open partial nephrectomy, which I will discuss further with the patient at that time. For now, the patient and his family understand the plan. It has come to my attention that Dr. Small was potentially planning for a cholecystectomy and stated that he would potentially do it at the same time as my nephrectomy. If the cholecystectomy needs to be done now, I would go ahead and do that, but I would not plan for nephrectomy at this time. If Dr. Holden could potentially defer the cholecystectomy for potentially 4-6 weeks at which time, the patient may be a better candidate for open partial nephrectomy, then we could potentially delay his cholecystectomy for that time. I will leave that decision ultimately up to Dr. Small, but for now, I will be on standby and will monitor the patient's recovery and would plan to see the patient in followup so that we can discuss partial nephrectomy at a later date. Job ID: [id number]
--- NOTE | 2018-10-26 11:22 | PDOC.PN ---
- Subjective Encounter Start Date: 10/26/18 Encounter Start Time: 08:30 Mr. Castillo was seen today in follow-up of medical management. He does not have any complaints this morning. He denies chest pain, or abdominal pain. He denies nausea. He tells me he is breathing comfortably. - Objective MAR Reviewed: Yes Vital Signs & Weight: Vital Signs (12 hours) Pulse Ox 10/26/18 07:43 100 Weight Admit Weight 305 lb Weight 310 lb 3.2 oz Most Recent Monitor Data Heart Rate from ECG 68 NIBP 110/66 NIBP BP-Mean 80 Respiration from ECG 18 SpO2 99 I&O: 10/25/18 10/26/18 10/27/18 06:59 06:59 06:59 Intake Total 1141 1900 Output Total 50 1300 Balance 1091 600 Result Diagrams: 10/25/18 04:50 10/25/18 04:50 Additional Labs: Accuchecks 10/25/18 10/25/18 10/25/18 20:21 16:09 11:53 POC Glucose 333 H 303 H 344 H Phys Exam - Physical Examination HEENT: PERRLA Respiratory: no wheezing, no rales, no rhonchi, clear to auscultation bilateral Cardiovascular: RRR, no significant murmur, no rub Gastrointestinal: soft, non-tender, no distention, positive bowel sounds Musculoskeletal: pulses present, edema present + non-pitting edema in both lower extremities Dx/Plan (1) Diabetes mellitus type 2 in obese Code(s): E11.69 - TYPE 2 DIABETES MELLITUS WITH OTHER SPECIFIED COMPLICATION; E66.9 - OBESITY, UNSPECIFIED Status: Chronic (2) Hypertension Code(s): I10 - ESSENTIAL (PRIMARY) HYPERTENSION Status: Chronic (3) Acute kidney injury Code(s): N17.9 - ACUTE KIDNEY FAILURE, UNSPECIFIED Status: Acute (4) Acute cholestatic jaundice syndrome Code(s): K83.8 - OTHER SPECIFIED DISEASES OF BILIARY TRACT Status: Acute (5) Unintentional weight loss Code(s): R63.4 - ABNORMAL WEIGHT LOSS Status: Chronic (6) Right renal mass Code(s): N28.89 - OTHER SPECIFIED DISORDERS OF KIDNEY AND URETER Status: Acute - Plan * Diabetes mellitus- his blood glucose has been elevated - this could be due to acute/subacute gallbladder disease, and he may have low grade sepsis- he is going for cholecystectomy this morning- when he returns from surgery- will need to increase his basal insulin dose, and continue a cautious SSI * HTN- blood pressure has been on the lower side. Continue to hold his antihypertensives * Acute kidney injury- awaiting the lab work for this morning- unfortunately the computer system was down temporarily and these results are not yet available. he has adequate urine output * Renal Mass- the plan is for partial nephrectomy when he is more clinically stable, and his renal function has recovered * eight loss- this may be due to poor oral intake due to presumed gall bladder disease * Echo results noted- he has evidence for diastolic dysfunction
[2018-10-26 11:32] LABS: Anion Gap 14 mmol/L (10-20); BUN (Urea Nitrogen) 62 mg/dL (8.4-25.7); Calc. Creatinine Clearance 92 mL/min (70-130); Calcium 8.3 mg/dL (7.8-10.44); Carbon Dioxide 20 mmol/L (23-31); Chloride 95 mmol/L (98-107); Estimated GFR-MDRD 44; Glucose 205 mg/dL (80-115); Sodium 125 mmol/L (136-145)
--- NOTE | 2018-10-26 11:33 | OP ---
DATE OF PROCEDURE: 10/26/2018 PREOPERATIVE DIAGNOSES: Acute cholecystitis and cholelithiasis. POSTOPERATIVE DIAGNOSES: Acute cholecystitis and cholelithiasis. OPERATION PERFORMED: Laparoscopic cholecystectomy. ANESTHESIA: General endotracheal. ESTIMATED BLOOD LOSS: 5 mL. FLUIDS GIVEN: 1400 mL crystalloids. COUNTS: Sponge and instrument counts were verified as correct x2. COMPLICATIONS: None apparent at the time of operation. INDICATIONS FOR OPERATION: This is a 63-year-old morbidly obese man, who presented with abdominal pain associated with jaundice, weight loss, and fatigue. Clinical radiographic examination was consistent with a 6 cm renal mass. Additional radiographic findings were consistent with acute cholecystitis and cholelithiasis. Given markedly elevated LFTs and suspicious for choledocholithiasis, the patient underwent an ERCP, finding no common bile duct stones. Urology was consulted and determined the renal mass will be addressed three months later. The patient was brought to the operating room for cholecystectomy. DESCRIPTION OF PROCEDURE: Informed consent was obtained from the patient, he was brought to the operating room and placed in supine position. Following general anesthesia, abdomen was sterilely prepped and draped in usual fashion. The skin in the right medial and right lateral subcostal port was infiltrated with 0.25% Marcaine with epinephrine. A stab incision was made using an 11 scalpel. The peritoneal cavity was entered using a Visiport under laparoscopy and gentle insufflation. The abdomen was then insufflated with 3 L of CO2 gas. Following abdominal insufflation, a 5 mm suprapubic, right lateral subcostal port as well as a 12 mm epigastric ports were placed. After the overlying skin were infiltrated with 0.25% Marcaine with epinephrine, appropriate incision was made. These ports were introduced under direct laparoscopy. The patient was placed in a reverse Trendelenburg position, rotated to his left. Laparoscopy confirmed proper placement of this ports. No injuries to underlying structures. Additional laparoscopy revealed the gallbladder in the usual anatomic location completely encased by omental adhesions. Under direct laparoscopy, a [place] dissector with cautery was introduced through the epigastric port site, taken down omental adhesions with good hemostasis. A Prestige grasper was introduced through the right lateral subcostal port grasping the fundus of the gallbladder, which was elevated cephalad. Omental adhesions were then taken down off the remainder of the gallbladder. A second Prestige grasper was introduced through the right medial subcostal port grasping the Ruel pouch, which was retracted laterally. The cystic duct was carefully dissected free from surrounding structures and divided between clips, applying 2 clips proximally and 1 clip at the junction of the cystic duct and gallbladder. Cystic artery was dissected free from surrounding structures and divided between clips in a similar fashion. The gallbladder itself was removed from the liver bed using cautery with good hemostasis. The gallbladder was delivered of the abdominal cavity using an EndoCatch. Operative site was inspected for good hemostasis. All clips remained in place. No bile stains present. No active bleeding noted. Fascia of the epigastric port was closed using 0 Vicryl suture and Endoclosure device on the laparoscopy. The abdomen was desufflated. All ports and instruments removed and accounted for. Skin incision was closed using 4-0 Monocryl suture in subcuticular fashion. Dermabond was applied over incisional closure. The patient tolerated this operation without any apparent complication and was returned to recovery room in satisfactory condition. Job ID: [id number]
[2018-10-26 11:34] LABS: White Blood Cell (WBC) Count 9.6 thou/uL (4.8-10.8)
[2018-10-26 11:35] LABS: #Lymphocytes 1.1 thou/uL (1.20-3.40); #Neutrophils 7.7 thou/uL (1.40-6.50); %Eosinophils 0.8 % (0.0-10.0); %Lymphocytes 11.2 % (21.0-51.0); %Monocytes 7.9 % (0.0-10.0); %Neutrophils 80.1 % (42.0-75.0); Hemoglobin 7.6 g/dL (14.0-18.0); Mean Corpuscular HGB CONC 32.7 g/dL (32.0-36.0); Mean Corpuscular Hemoglobin 33.1 pg (27.0-31.0); Mean Platelet Volume 6.8 fL (7.4-10.4); Platelet Count 303 thou/uL (130-400); RBC Distribution Width 13.3 % (11.5-14.5)
[2018-10-26 11:36] LABS: #Eosinphils 0.1 thou/uL (0.0-0.7); #Monocytes 0.8 thou/uL (0.11-0.59)
[2018-10-26] MEDS ORDERED: traMADol HCl 50 MG TAB PO PRN ×2 (11:42)
[2018-10-26] MEDS ORDERED: Acetaminophen 325 MG TAB PO PRN (11:42)
[2018-10-26 11:50] LABS: Phosphorus 4.2 mg/dL (2.3-4.7)
[2018-10-26] MEDS: Folic Acid 1 MG TAB PO SCH (13:25)
[2018-10-26] MEDS: Famotidine 20 MG TAB PO SCH ×2 (13:25→20:32)
[2018-10-26] MEDS: Heparin 5,000 UNITS/ML VIAL SC SCH ×2 (13:25→20:32)
[2018-10-26] MEDS: Multivit, Therapeutic 1 TAB PO SCH (13:26)
[2018-10-26] MEDS: Thiamine 100 MG TAB PO SCH (13:26)
[2018-10-26] MEDS: Insulin Regular 300 UNITS/3 ML VIAL SC PRN ×3 (15:01→20:33)
[2018-10-26] MEDS ORDERED: Magnesium 2 GM/50 ML 4 GM in Premix Bag 1 BAG IVPB SCH (16:30)
[2018-10-26] MEDS ORDERED: PHENYLEPHRINE-NS 100 MCG/ML 10 ML SYRINGE ONE (16:38)
[2018-10-26] MEDS ORDERED: ePHEDrine 50 MG/ML VIAL ONE (16:38)
[2018-10-26] MEDS ORDERED: PROPOFOL 200 MG/20 ML VIAL ONE (16:38)
[2018-10-26] MEDS ORDERED: Rocuronium Bromide 10 MG/ML (10ML VIAL) ONE (16:38)
[2018-10-26] MEDS ORDERED: Ondansetron PF 4 MG/2 ML Vial ONE (16:38)
[2018-10-26] MEDS ORDERED: Lidocaine 1% PF 5 ML VIAL ONE (16:38)
--- NOTE | 2018-10-26 16:40 | PRG ---
DATE OF SERVICE: 10/26/2018 SUBJECTIVE: The patient was seen this afternoon postoperatively, sitting up in bed with no signs of acute distress. Reported pain was well controlled and he had no complaints. He was tolerating a clear liquid diet. He had not yet ambulated or gotten up out of bed. Denied nausea, vomiting, or diarrhea. OBJECTIVE: VITAL SIGNS: Temperature 97.5, pulse 72, respirations 20, oxygen saturation 100% on 2 L nasal cannula, blood pressure 111/78. GENERAL: Well-appearing elderly male, lying in bed with no signs of acute distress. CARDIAC: Regular rate and rhythm. No murmurs, gallops, or rubs. PULMONARY: Equal chest rise and fall. Clear breath sounds bilaterally. No signs of acute respiratory distress. ABDOMEN: Soft, mildly tender to palpation. Nondistended. EXTREMITIES: 2+ pulses in all extremities. No significant swelling noted. LABORATORY FINDINGS: White count 9.6, hemoglobin 7.6, hematocrit 23.3, and platelets 303. Sodium 125, potassium 4.0, chloride 95, carbon dioxide 20, BUN 62, creatinine 1.60, glucose 205, phos 4.2, and magnesium 1.0. DIAGNOSTIC FINDINGS: There are no new diagnostic findings to discuss. ASSESSMENT: 1. Status post laparoscopic cholecystectomy completed today. 2. Renal failure, improving. 3. Renal mass, renal cell carcinoma. PLAN: The patient went to the OR with Dr. Small. He is postoperative day 0 at this time. He is on a clear liquid diet and can advance as tolerated. We will give 4 g of magnesium today. Nephrology, Urology, and Hospital Medicine are involved in the patient's care and will address further concerns. Continue current pain regimen. Encourage the patient to ambulate. The patient was seen and examined by Dr. Small and myself today during rounds. Job ID: [id number]
[2018-10-26] MEDS ORDERED: Magnesium Sulfate 4 GM in Sodium Chloride 0.9% 250 ML 250 ML IVPB SCH (17:15)
--- NOTE | 2018-10-26 19:21 | PRG ---
DATE OF SERVICE: 10/26/2018 SUBJECTIVE: The patient is seen and examined, status post cholecystectomy, doing well. Noted with the following vital signs. OBJECTIVE: VITAL SIGNS: Afebrile, temperature 97.5, pulse 72, respiratory rate of 20, O2 saturation 100% with blood pressure 111/73. HEENT: Unremarkable. Moist oral mucosa. NECK: Supple. No conjunctival injection or icterus. CARDIOVASCULAR SYSTEM: First and second heart sounds were heard. RESPIRATORY SYSTEM: Clear to auscultation. DIGESTIVE SYSTEM: Revealed a benign abdomen with positive bowel sounds. EXTREMITIES: No peripheral edema. SKIN: No new gross rash. LYMPHATICS: No peripheral lymphadenopathy. LABORATORY INVESTIGATION: Showed a sodium of 125 and creatinine down to 1.6. IMPRESSION: 1. Acute on chronic kidney disease, which is much improved. 2. Hyponatremia, query cause. 3. Renal mass, query type. PLAN: 1. We will continue with current renal supportive measures. 2. Urine chemistry through the urine sodium and urine osmolarity to identify what kind of hyponatremia this patient does have. If this turns out to be SIADH, we strongly recommend discontinuation of the current IV fluid. 3. Renal mass workup by Urology. 4. Further management to be dependent on the clinical course. Job ID: [id number]
[2018-10-26] MEDS: Melatonin 3 MG TAB PO PRN (20:32)
[2018-10-26] MEDS ORDERED: Insulin Glargine 25 UNITS in Pre-Filled Syringe 1 EACH SC SCH (21:00)
[2018-10-27 05:44] LABS: Band 3 % (5-11); Lymphocytes 20 % (21-51); MDiff Complete? YES; Mean Corpuscular Hemoglobin 34.5 pg (27.0-31.0); Mean Platelet Volume 6.5 fL (7.4-10.4); Monocytes 6 % (0-10); Myelocyte 1 % (0-0); Neutrophil 70 % (42-75); Platelet Count 306 thou/uL (130-400); RBC Distribution Width 13.3 % (11.5-14.5); Red Blood Cell (RBC) Count 2.02 mill/uL (4.70-6.10); White Blood Cell (WBC) Count 11.5 thou/uL (4.8-10.8)
[2018-10-27] MEDS: Sodium Chloride 0.9% 1,000 ML IV SCH (06:01)
[2018-10-27 06:17] LABS: ALT (SGPT) 19 U/L (8-55); AST (SGOT) 17 U/L (5-34); Albumin 2.8 g/dL (3.4-4.8); Alkaline Phosphatase 535 U/L (40-150); Anion Gap 11 mmol/L (10-20); BUN (Urea Nitrogen) 43 mg/dL (8.4-25.7); Bilirubin, Direct 1.7 mg/dL (0.1-0.3); Bilirubin, Total 2.3 mg/dL (0.2-1.2); Calc. Creatinine Clearance 150 mL/min (70-130); Calcium 8.3 mg/dL (7.8-10.44); Carbon Dioxide 21 mmol/L (23-31); Chloride 100 mmol/L (98-107); Estimated GFR-MDRD 77; Glucose 112 mg/dL (80-115); Magnesium 1.5 mg/dL (1.6-2.6); Phosphorus 2.7 mg/dL (2.3-4.7); Potassium 4.1 mmol/L (3.5-5.1); Protein, Total 5.3 g/dL (5.8-8.1); Sodium 128 mmol/L (136-145)
[2018-10-27] MEDS ORDERED: Magnesium Sulfate 3 GM in Sodium Chloride 0.9% 100 ML IVPB SCH (07:15)
[2018-10-27] MEDS: Ferrous Sulfate 325 MG TAB PO SCH ×2 (08:58→17:38)
[2018-10-27] MEDS: Thiamine 100 MG TAB PO SCH (08:59)
[2018-10-27] MEDS: Folic Acid 1 MG TAB PO SCH (09:01)
[2018-10-27] MEDS: Famotidine 20 MG TAB PO SCH (09:01)
[2018-10-27] MEDS: Multivit, Therapeutic 1 TAB PO SCH (09:01)
[2018-10-27] MEDS: Cyanocobalamin (Vitamin B-12) 1,000 MCG TAB PO SCH (09:01)
[2018-10-27] MEDS: Insulin Regular 300 UNITS/3 ML VIAL SC PRN ×4 (09:02→20:41)
[2018-10-27] MEDS: Insulin Glargine 25 UNITS in Pre-Filled Syringe 1 EACH SC SCH (09:03)
[2018-10-27] MEDS: Heparin 5,000 UNITS/ML VIAL SC SCH ×2 (09:04→20:41)
[2018-10-27] MEDS ORDERED: Tamsulosin HCl 0.4 MG CAP PO SCH (09:30)
--- NOTE | 2018-10-27 14:36 | PRG ---
DATE OF SERVICE: 10/27/2018 SUBJECTIVE: This is a 63-year-old male, postop day #1, status post cholecystectomy. There were no acute overnight events. Upon our evaluation this morning, the patient reports abdominal pain is much improved. He vocalized no complaint. He is tolerating his diet. OBJECTIVE: VITAL SIGNS: T-max 98.5, pulse 90, respirations 18, O2 saturation 92% to 97% on room air, blood pressure 123/78. GENERAL: Elderly appearing male, in no acute distress, resting in bed, appears somewhat jaundiced. PULMONARY: Normal work of breathing. Symmetric rise. CARDIOVASCULAR: Regular rate and rhythm. GI: Abdomen is soft, nontender, nondistended. Surgical sites are clean, dry, and intact. : Bonds in place. Urine appears clear. MUSCULOSKELETAL: Moves all extremities x4. NEURO: No focal deficit is noted. LABORATORY FINDINGS: WBC 11.5, hemoglobin 7.0, hematocrit 20.5, platelet count 30.6. Sodium 129, potassium 4.2, chloride 94, carbon dioxide 21, BUN 64, creatinine 2.44, glucose 168. ASSESSMENT: 1. Postoperative day #1 status post cholecystectomy. 2. Choledocholithiasis, possible cholecystitis. 3. Pancreatitis, improving. 4. Acute renal failure, improving. 5. Renal mass, followed by Urology. 6. Diabetes. 7. Acute blood loss anemia on chronic anemia. 8. Hyponatremia, stable. PLAN: Encourage mobility. Work with PT and OT. Recommend rehab screening. Encourage p.o. intake. Discontinue Bonds. Per the patient, he has been having multiple episodes of nocturia and urgency associated with weak stream. We will start the patient on Flomax. A.m. labs, follow anemia and transfuse for hemoglobin less than 7 or symptomatic anemia. Appreciate Hospital Medicine, Urology, and Nephrology recommendations. Plan of care was discussed with the patient at bedside and all questions were answered at the time of this dictation. The patient was seen and evaluated with Dr. Small. Job ID: [id number]
[2018-10-27] MEDS ORDERED: Tolvaptan 15 MG TAB PO SCH (17:30)
--- NOTE | 2018-10-27 17:46 | PDOC.PN ---
- Subjective Encounter Start Date: 10/27/18 Encounter Start Time: 14:15 Mr. Castillo was seen today in follow-up of abdominal pain, and renal mass. He says he feels better, and his appetite has improved. He has ambulated some. - Objective MAR Reviewed: Yes Vital Signs & Weight: Vital Signs (12 hours) Temp Pulse Pulse Resp BP BP Pulse Ox 10/27/18 16:02 98.4 F 95 20 115/74 95 10/27/18 16:00 98.7 F 18 96 10/27/18 09:40 98.1 F 10/27/18 09:10 99 138/80 10/27/18 08:00 92 L 10/27/18 07:57 98.5 F 90 18 123/78 92 L Weight Admit Weight 305 lb Weight 310 lb 3.2 oz Most Recent Monitor Data Heart Rate from ECG 68 NIBP 132/75 NIBP BP-Mean 80 Respiration from ECG 18 SpO2 99 I&O: 10/26/18 10/27/18 10/28/18 06:59 06:59 06:59 Intake Total 1900 3600 800 Output Total 1300 1825 1350 Balance 600 1775 -550 Result Diagrams: 10/27/18 04:46 10/27/18 04:46 Additional Labs: Accuchecks 10/27/18 10/27/18 10/27/18 16:18 11:56 08:06 POC Glucose 241 H 210 H 167 H 10/27/18 10/26/18 10/26/18 03:48 23:41 20:15 POC Glucose 121 H 133 H 310 H 10/26/18 06:13 POC Glucose 218 H Phys Exam - Physical Examination HEENT: PERRLA Respiratory: no wheezing, no rales, no rhonchi, clear to auscultation bilateral Cardiovascular: RRR, no significant murmur, no rub Gastrointestinal: soft, non-tender, no distention, positive bowel sounds Musculoskeletal: pulses present, edema present trace non-pitting edema Dx/Plan (1) Diabetes mellitus type 2 in obese Code(s): E11.69 - TYPE 2 DIABETES MELLITUS WITH OTHER SPECIFIED COMPLICATION; E66.9 - OBESITY, UNSPECIFIED Status: Chronic (2) Hypertension Code(s): I10 - ESSENTIAL (PRIMARY) HYPERTENSION Status: Chronic (3) Acute kidney injury Code(s): N17.9 - ACUTE KIDNEY FAILURE, UNSPECIFIED Status: Acute (4) Acute cholestatic jaundice syndrome Code(s): K83.8 - OTHER SPECIFIED DISEASES OF BILIARY TRACT Status: Acute (5) Unintentional weight loss Code(s): R63.4 - ABNORMAL WEIGHT LOSS Status: Chronic (6) Right renal mass Code(s): N28.89 - OTHER SPECIFIED DISORDERS OF KIDNEY AND URETER Status: Acute - Plan * Acalculous Cholecystitis- he is s/p lap phong, and liver function test have improved * Acute kidney injury- renal function has improved, I suspect he is close to his baseline * Hyponatremia- lab result are most consistent with SIADH- will discontinue his IV fluids- re-check in the AM- he may need fluid restriction * DM- blood glucose has improved- will increase his evening dose of Lantus * HTN- blood pressure had been low- but is improving now * Renal Mass- plan is for partial right nephrectomy when he is clinically more stable, and his kidneys have had some time to recover. * Encourage PT/OT and consider Rehab screen
[2018-10-27] MEDS: Melatonin 3 MG TAB PO PRN (20:40)
[2018-10-27] MEDS: Docusate 100 MG CAP PO SCH (20:40)
[2018-10-27] MEDS: Senokot S 8.6-50 MG TAB PO SCH (20:41)
[2018-10-27] MEDS: Insulin Glargine 30 UNITS in Pre-Filled Syringe SC SCH (20:43)
--- NOTE | 2018-10-27 21:34 | PRG ---
DATE OF SERVICE: SUBJECTIVE: The patient is seen and examined, seems to be doing much better, noted with the following vital signs. OBJECTIVE: VITAL SIGNS: Afebrile, temperature 98.4, pulse 95, respiratory rate of 20, O2 saturations are 95% with blood pressure 115/74. HEENT: Unremarkable. Moist oral mucosa. NECK: Supple. No conjunctival injection or icterus. CARDIOVASCULAR SYSTEM: First and second heart sounds were heard. DIGESTIVE SYSTEM: Revealed a benign abdomen. SKIN: No new gross rash. LYMPHATICS: No peripheral lymphadenopathy. LABORATORY INVESTIGATIONS: Showed sodium of 128. Urine chemistry showed urine osmolality of 419 and urine sodium of 61. IMPRESSION: 1. Hyponatremia, this is purely syndrome of inappropriate antidiuretic hormone. 2. Acute on chronic kidney disease. PLAN: 1. Discontinue IV fluid. 2. We will prescribe one tablet of tolvaptan. 3. Follow up sodium level. 4. Outpatient Nephrology followup. Job ID: [id number]
[2018-10-28] MEDS: Insulin Regular 300 UNITS/3 ML VIAL SC PRN ×4 (05:01→21:26)
[2018-10-28 07:20] LABS: ALT (SGPT) 16 U/L (8-55); AST (SGOT) 13 U/L (5-34); Albumin 2.9 g/dL (3.4-4.8); Alkaline Phosphatase 515 U/L (40-150); Anion Gap 10 mmol/L (10-20); BUN (Urea Nitrogen) 29 mg/dL (8.4-25.7); Bilirubin, Total 2.1 mg/dL (0.2-1.2); Calc. Creatinine Clearance 154 mL/min (70-130); Calcium 8.8 mg/dL (7.8-10.44); Carbon Dioxide 24 mmol/L (23-31); Chloride 104 mmol/L (98-107); Estimated GFR-MDRD 80; Glucose 133 mg/dL (80-115); Potassium 4.5 mmol/L (3.5-5.1); Protein, Total 5.9 g/dL (5.8-8.1); Sodium 133 mmol/L (136-145)
[2018-10-28 07:39] LABS: Band 3 % (5-11); Hemoglobin 8.2 g/dL (14.0-18.0); Lymphocytes 15 % (21-51); MDiff Complete? YES; Mean Corpuscular HGB CONC 32.9 g/dL (32.0-36.0); Mean Corpuscular Hemoglobin 32.8 pg (27.0-31.0); Mean Corpuscular Volume 99.8 fL (78.0-98.0); Mean Platelet Volume 6.2 fL (7.4-10.4); Monocytes 4 % (0-10); Neutrophil 78 % (42-75); Platelet Count 311 thou/uL (130-400); RBC Distribution Width 13.8 % (11.5-14.5); Red Blood Cell (RBC) Count 2.49 mill/uL (4.70-6.10); Toxic Granulation SLIGHT
[2018-10-28] MEDS: Ferrous Sulfate 325 MG TAB PO SCH ×2 (08:52→17:16)
[2018-10-28] MEDS: Polyethylene Glycol 3350 17 GM Packet PO SCH (09:39)
[2018-10-28] MEDS: Senokot S 8.6-50 MG TAB PO SCH ×2 (09:39→21:22)
[2018-10-28] MEDS: Cyanocobalamin (Vitamin B-12) 1,000 MCG TAB PO SCH (09:40)
[2018-10-28] MEDS: Docusate 100 MG CAP PO SCH ×2 (09:40→21:20)
[2018-10-28] MEDS: Folic Acid 1 MG TAB PO SCH (09:40)
[2018-10-28] MEDS: Multivit, Therapeutic 1 TAB PO SCH (09:40)
[2018-10-28] MEDS: Tamsulosin HCl 0.4 MG CAP PO SCH (09:40)
[2018-10-28] MEDS: Famotidine 20 MG TAB PO SCH (09:40)
[2018-10-28] MEDS: Thiamine 100 MG TAB PO SCH (09:40)
[2018-10-28] MEDS: Heparin 5,000 UNITS/ML VIAL SC SCH ×2 (09:41→21:21)
[2018-10-28] MEDS: Insulin Glargine 25 UNITS in Pre-Filled Syringe 1 EACH SC SCH (09:42)
--- NOTE | 2018-10-28 11:04 | EKG ---
Test Reason : ABD PAIN Blood Pressure : / mmHG Vent. Rate : 081 BPM Atrial Rate : 081 BPM P-R Int : 138 ms QRS Dur : 108 ms QT Int : 386 ms P-R-T Axes : 005 -31 016 degrees QTc Int : 448 ms Normal sinus rhythm Left axis deviation Incomplete right bundle branch block Nonspecific ST abnormality Abnormal ECG Confirmed by RENEE NEIL ([id number]), manager editorial SCOTT WHEAT ([id number]) on 10/28/2018 11:04:06 AM Referred By: MD NEIL Confirmed By:RENEE NEIL
--- NOTE | 2018-10-28 13:17 | PRG ---
DATE OF SERVICE: 10/28/2018 SUBJECTIVE: Mr. Castillo is a 63-year-old man who is postoperative day #2, status post laparoscopic cholecystectomy. The patient also has right renal mass, which is being followed by Urology. This morning, he denies any significant abdominal pain. He tolerates diet, having normal bowel and urinary function. PHYSICAL EXAMINATION: VITAL SIGNS: This morning include blood pressure 132/81, pulse 91, respiratory rate is 18, temperature 98.3 degrees Fahrenheit, oxygen saturation 95% on room air. HEENT: Reveals resolving bilateral scleral icterus. HEART: Reveals regular rate and rhythm. No murmurs or gallops auscultated. LUNGS: Clear to auscultation bilaterally. Breathing, regular and nonlabored. ABDOMEN: Soft and obese, but nontender to palpation. Incisions are intact, clean, and dry. He clearly has no peritoneal signs on examination. NEUROLOGIC: Reveals no focal deficits present. LABORATORY FINDINGS: Today include CBC with 14,000 white blood cells, hemoglobin and hematocrit 8.2 and 24.9 respectively. Platelet count is 311,000. Differential counts as follows; 78 segmented neutrophils, 3 bands, 15 lymphocytes, and 4 monocytes. Metabolic profile; sodium 133, potassium is 4.5, chloride is 104, bicarb is 24, BUN 29, creatinine is 0.95, glucose 133, total bilirubin is 2.1. AST and ALT are normal at 13 and 16 respectively. Alkaline phosphatase is 515. IMPRESSIONS: 1. Postoperative day #2, status post laparoscopic cholecystectomy, hemodynamically stable. 2. Right renal mass, being followed by Urology. 3. Debility. PLAN: Increase activity per Physical and Occupational Therapy. The patient has been evaluated by PM and R and is pending transfer to inpatient rehabilitation once insurance authorization and bed availability is secured. Job ID: [id number]
--- NOTE | 2018-10-28 15:54 | PDOC.PN ---
- Subjective Encounter Start Date: 10/28/18 Encounter Start Time: 15:30 Subjective: f/u for HTN, DM with recent acute cholecystitis s/p lap phong POD # 3. -: States ambulating short distance with RW. - Objective MAR Reviewed: Yes Vital Signs & Weight: Vital Signs (12 hours) Temp Pulse Resp BP Pulse Ox 10/28/18 12:12 98.7 F 98 18 160/90 H 97 10/28/18 08:00 95 10/28/18 07:15 98.3 F 91 18 132/81 95 10/28/18 04:53 97.9 F 94 20 116/77 95 Weight Admit Weight 305 lb Weight 310 lb 3.2 oz Most Recent Monitor Data Heart Rate from ECG 68 NIBP 132/75 NIBP BP-Mean 80 Respiration from ECG 18 SpO2 99 I&O: 10/27/18 10/28/18 10/29/18 06:59 06:59 06:59 Intake Total 3600 1040 Output Total 1825 3150 Balance 1775 -2110 Result Diagrams: 10/28/18 06:42 10/28/18 06:42 Additional Labs: Accuchecks 10/28/18 10/28/18 10/28/18 12:16 07:22 04:28 POC Glucose 240 H 138 H 154 H 10/28/18 10/27/18 10/27/18 00:08 19:52 16:18 POC Glucose 133 H 227 H 241 H Phys Exam - Physical Examination Constitutional: NAD HEENT: PERRLA, sclera anicteric, oral pharynx no lesions Neck: no nodes, no JVD, supple, full ROM Respiratory: no wheezing, no rales, no rhonchi, clear to auscultation bilateral S1, S2 Cardiovascular: RRR, no significant murmur, gallop Gastrointestinal: soft, non-tender, no distention, positive bowel sounds Musculoskeletal: pulses present, edema present Neurological: normal sensation, moves all 4 limbs Psychiatric: A&O x 3 Skin: normal turgor, cap refill <2 seconds Dx/Plan (1) Acute kidney injury Code(s): N17.9 - ACUTE KIDNEY FAILURE, UNSPECIFIED Status: Acute Comment: Improved, avoid nephrotoxic meds and limit contrast exposure, serial monitoring (2) Right renal mass Code(s): N28.89 - OTHER SPECIFIED DISORDERS OF KIDNEY AND URETER Status: Acute Comment: Plans for partial R nephrectomy when medically stable (3) Diabetes mellitus type 2 in obese Code(s): E11.69 - TYPE 2 DIABETES MELLITUS WITH OTHER SPECIFIED COMPLICATION; E66.9 - OBESITY, UNSPECIFIED Status: Chronic Comment: Continue Lantus, ISS, accuchecks ACHS (4) Hypertension Code(s): I10 - ESSENTIAL (PRIMARY) HYPERTENSION Status: Chronic Qualifiers: Hypertension type: essential hypertension Qualified Code(s): I10 - Essential (primary) hypertension Comment: Resume home BP regimen, serial monitoring - Plan plan discussed w/ family, PT/OT, transition social worker, out of bed/ambulate, DVT proph w/SCDs Stable currently -: Continue PT/OT for mobilization -: Rehab screening in progress -: Resume Amlodipine/Atenolol -: AM lab: BMP, H/H * .
[2018-10-28] MEDS: Melatonin 3 MG TAB PO PRN (21:20)
[2018-10-28] MEDS: Insulin Glargine 30 UNITS in Pre-Filled Syringe SC SCH (21:24)
--- NOTE | 2018-10-28 21:34 | PRG ---
DATE OF SERVICE: 10/28/2018 SUBJECTIVE: The patient is seen and examined, feeling much better. OBJECTIVE: VITAL SIGNS: Noted with the following vital signs, afebrile, temperature 98.8, pulse 98-104, respiratory rate of 16 to 18, O2 saturation of 97%, blood pressure of 162/91. HEENT: Examination unremarkable. Moist oral mucosa. No conjunctival injection or icterus. NECK: Supple. CARDIOVASCULAR: First and second heart sounds were heard. RESPIRATORY: Clear to auscultation. DIGESTIVE: Revealed an obese abdomen. EXTREMITIES: No peripheral edema. SKIN: No new gross rash. LYMPHATICS: No peripheral lymphadenopathy. LABORATORY INVESTIGATION: Showed a sodium that has gone up to 133, creatinine down to 0.95. IMPRESSION: 1. Hypernatremia in the context of syndrome of inappropriate antidiuretic hormone, responded very well to anti-diuretic hormone tolvaptan. 2. Acute kidney injury, which has improved. PLAN: 1. We will continue with current conservative measures in the way of restricted free water intake as well as increased protein intake in the way of animal meat. 2. Outpatient Nephrology followup, pay close to attention to the sodium level. 3. Further management to be dependent on the clinical course. Job ID: [id number]
[2018-10-29 05:05] LABS: Hemoglobin 7.4 g/dL (14.0-18.0); Platelet Count 287 thou/uL (130-400)
[2018-10-29 05:31] LABS: Anion Gap 12 mmol/L (10-20); BUN (Urea Nitrogen) 18 mg/dL (8.4-25.7); Calc. Creatinine Clearance 204 mL/min (70-130); Calcium 8.9 mg/dL (7.8-10.44); Carbon Dioxide 22 mmol/L (23-31); Chloride 103 mmol/L (98-107); Estimated GFR-MDRD Greater than 90; Glucose 64 mg/dL (80-115); Potassium 4.1 mmol/L (3.5-5.1); Sodium 133 mmol/L (136-145)
[2018-10-29] MEDS: Ferrous Sulfate 325 MG TAB PO SCH ×2 (07:57→17:04)
[2018-10-29] MEDS: Polyethylene Glycol 3350 17 GM Packet PO SCH (09:09)
[2018-10-29] MEDS: Docusate 100 MG CAP PO SCH ×2 (09:10→21:32)
[2018-10-29] MEDS: Senokot S 8.6-50 MG TAB PO SCH ×2 (09:10→21:32)
[2018-10-29] MEDS: Multivit, Therapeutic 1 TAB PO SCH (09:11)
[2018-10-29] MEDS: Amlodipine 5 MG TAB PO SCH (09:11)
[2018-10-29] MEDS: Atenolol 50 MG TAB PO SCH (09:11)
[2018-10-29] MEDS: Tamsulosin HCl 0.4 MG CAP PO SCH (09:11)
[2018-10-29] MEDS: Thiamine 100 MG TAB PO SCH (09:11)
[2018-10-29] MEDS: Famotidine 20 MG TAB PO SCH (09:11)
[2018-10-29] MEDS: Folic Acid 1 MG TAB PO SCH (09:12)
[2018-10-29] MEDS: Heparin 5,000 UNITS/ML VIAL SC SCH ×2 (09:12→21:35)
[2018-10-29] MEDS: Insulin Glargine 25 UNITS in Pre-Filled Syringe 1 EACH SC SCH (09:12)
[2018-10-29] MEDS: Cyanocobalamin (Vitamin B-12) 1,000 MCG TAB PO SCH (09:12)
[2018-10-29] MEDS: Insulin Regular 300 UNITS/3 ML VIAL SC PRN ×2 (12:03→17:04)
--- NOTE | 2018-10-29 17:42 | PDOC.PN ---
- Subjective Encounter Start Date: 10/29/18 Encounter Start Time: 17:35 Subjective: f/u for DM/HTN and s/p cholecystectomy POD #3. Tolerating po -: intake. Ambulated short distance with PT. - Objective MAR Reviewed: Yes Vital Signs & Weight: Vital Signs (12 hours) Temp Pulse Resp BP BP Pulse Ox 10/29/18 16:28 98.7 F 72 18 108/68 98 10/29/18 12:10 98.0 F 85 18 97/65 97 10/29/18 09:11 95 139/82 10/29/18 08:00 98 10/29/18 07:38 98.0 F 95 18 139/82 98 Weight Admit Weight 305 lb Weight 310 lb 3.2 oz Most Recent Monitor Data Heart Rate from ECG 68 NIBP 132/75 NIBP BP-Mean 80 Respiration from ECG 18 SpO2 99 I&O: 10/28/18 10/29/18 10/30/18 06:59 06:59 06:59 Intake Total 1040 1930 Output Total 3150 2075 Balance -2110 -145 Result Diagrams: 10/29/18 04:25 10/29/18 04:25 Additional Labs: Accuchecks 10/29/18 10/29/18 10/29/18 15:56 10:54 05:24 POC Glucose 171 H 204 H 73 10/28/18 20:28 POC Glucose 255 H Laboratory Tests 10/25/18 10/26/18 10/27/18 04:50 05:00 04:46 WBC Hgb 8.2 L 7.6 L 7.0 L Plt Count 10/28/18 06:42 WBC 14.0 H Hgb 8.2 L Plt Count 311 Phys Exam - Physical Examination Constitutional: NAD HEENT: PERRLA, sclera anicteric, oral pharynx no lesions Neck: no nodes, no JVD, supple, full ROM Respiratory: no wheezing, no rales, no rhonchi, clear to auscultation bilateral S1, S2 Cardiovascular: RRR, no significant murmur, no rub, gallop Gastrointestinal: soft, non-tender, no distention, positive bowel sounds Musculoskeletal: pulses present, edema present Neurological: normal sensation, moves all 4 limbs Psychiatric: A&O x 3 Skin: normal turgor, cap refill <2 seconds Dx/Plan (1) Acute kidney injury Code(s): N17.9 - ACUTE KIDNEY FAILURE, UNSPECIFIED Status: Acute Comment: Improved, avoid nephrotoxic meds and limit contrast exposure, serial monitoring (2) Right renal mass Code(s): N28.89 - OTHER SPECIFIED DISORDERS OF KIDNEY AND URETER Status: Acute Comment: Plans for partial R nephrectomy when medically stable (3) Diabetes mellitus type 2 in obese Code(s): E11.69 - TYPE 2 DIABETES MELLITUS WITH OTHER SPECIFIED COMPLICATION; E66.9 - OBESITY, UNSPECIFIED Status: Chronic Comment: Continue Lantus, ISS, accuchecks ACHS (4) Hypertension Code(s): I10 - ESSENTIAL (PRIMARY) HYPERTENSION Status: Chronic Qualifiers: Hypertension type: essential hypertension Qualified Code(s): I10 - Essential (primary) hypertension Comment: Resume home BP regimen, serial monitoring (5) Hyponatremia Code(s): E87.1 - HYPO-OSMOLALITY AND HYPONATREMIA Status: Acute Comment: Improved, likely SIADH, serial Na+ monitoring - Plan PT/OT, social work coordinator, out of bed/ambulate, DVT proph w/SCDs Stable currently -: Continue supportive mgmt -: Rehab placement pending -: OOB/PT -: AM lab: BMP, CBC * .
[2018-10-29] MEDS ORDERED: Insulin Regular 300 UNITS/3 ML VIAL SC PRN (21:43)
[2018-10-29] MEDS: Insulin Glargine 30 UNITS in Pre-Filled Syringe SC SCH (21:44)
--- NOTE | 2018-10-29 23:07 | PRG ---
DATE OF SERVICE: 10/29/2018 SUBJECTIVE: The patient is seen and examined with no new complaint. OBJECTIVE: VITAL SIGNS: Noted with the following vital signs. Afebrile, temperature 98.8, pulse 72, respiratory rate of 18, O2 saturation 98%, and blood pressure 108/68. HEENT: Unremarkable. Moist oral mucosa. No conjunctival injection or icterus. NECK: Supple. CARDIOVASCULAR: First and second heart sounds were heard. RESPIRATORY: Clear to auscultation. DIGESTIVE: Revealed a benign abdomen. EXTREMITIES: No peripheral edema. SKIN: No new gross rash. LYMPHATICS: No peripheral lymphadenopathy. LABORATORY INVESTIGATION: Showed a sodium of 133. IMPRESSION: 1. Hyponatremia in the context of syndrome of inappropriate antidiuretic hormone secretion, much improved. 2. Acute kidney injury, which is resolved. 3. Status post cholecystectomy. PLAN: 1. We will continue current renal supportive measures. 2. We will recommend deescalating daily blood draws to avoid component of iatrogenic anemia. 3. Further management to be dependent on the clinical course. Job ID: [id number]
[2018-10-30 04:56] LABS: Anion Gap 13 mmol/L (10-20); BUN (Urea Nitrogen) 19 mg/dL (8.4-25.7); Calc. Creatinine Clearance 179 mL/min (70-130); Calcium 8.8 mg/dL (7.8-10.44); Carbon Dioxide 22 mmol/L (23-31); Chloride 103 mmol/L (98-107); Estimated GFR-MDRD Greater than 90; Glucose 139 mg/dL (80-115); Potassium 4.6 mmol/L (3.5-5.1); Sodium 133 mmol/L (136-145)
[2018-10-30 05:21] LABS: Band 6 % (5-11); Hemoglobin 7.6 g/dL (14.0-18.0); Lymphocytes 11 % (21-51); MDiff Complete? YES; Mean Corpuscular HGB CONC 32.9 g/dL (32.0-36.0); Mean Corpuscular Hemoglobin 33.2 pg (27.0-31.0); Mean Platelet Volume 6.8 fL (7.4-10.4); Monocytes 9 % (0-10); Neutrophil 74 % (42-75); Platelet Count 294 thou/uL (130-400); RBC Distribution Width 13.9 % (11.5-14.5); Red Blood Cell (RBC) Count 2.29 mill/uL (4.70-6.10); White Blood Cell (WBC) Count 16.5 thou/uL (4.8-10.8)
[2018-10-30] MEDS: Heparin 5,000 UNITS/ML VIAL SC SCH (08:28)
[2018-10-30] MEDS: Ferrous Sulfate 325 MG TAB PO SCH ×2 (08:28→16:54)
[2018-10-30] MEDS: Docusate 100 MG CAP PO SCH (08:29)
[2018-10-30] MEDS: Senokot S 8.6-50 MG TAB PO SCH (08:29)
[2018-10-30] MEDS: Multivit, Therapeutic 1 TAB PO SCH (08:29)
[2018-10-30] MEDS: Amlodipine 5 MG TAB PO SCH (08:30)
[2018-10-30] MEDS: Folic Acid 1 MG TAB PO SCH (08:30)
[2018-10-30] MEDS: Atenolol 50 MG TAB PO SCH (08:30)
[2018-10-30] MEDS: Cyanocobalamin (Vitamin B-12) 1,000 MCG TAB PO SCH (08:30)
[2018-10-30] MEDS: Thiamine 100 MG TAB PO SCH (08:31)
[2018-10-30] MEDS: Tamsulosin HCl 0.4 MG CAP PO SCH (08:31)
[2018-10-30] MEDS: Insulin Glargine 25 UNITS in Pre-Filled Syringe 1 EACH SC SCH (08:31)
[2018-10-30] MEDS: Polyethylene Glycol 3350 17 GM Packet PO SCH (08:31)
[2018-10-30] MEDS: Insulin Regular 300 UNITS/3 ML VIAL SC PRN ×2 (11:49→16:55)
--- NOTE | 2018-10-30 14:56 | PRG ---
DATE OF SERVICE: 10/30/2018 This is Diana Verduzco NP dictating a report for Riccardo Small DO. SUBJECTIVE: This is a 63-year-old gentleman, who is postop day #4, status post laparoscopic cholecystectomy. The patient also has a right renal mass, which is being followed by Urology. The patient is awake, alert, in no distress this morning, denies any complaints. OBJECTIVE: VITAL SIGNS: Temperature 98.2, pulse 84, respirations 18, SpO2 of 99% on room air, and blood pressure 147/85. GENERAL: Awake, alert, in no distress, obese gentleman. HEENT: Mild bilateral scleral icterus. HEART: Regular rate. Regular rhythm. CHEST: Equal chest rise and fall, no respiratory distress. ABDOMEN: Soft, obese, and nontender. Incisions are clean, dry, and intact. NEUROLOGIC: No focal deficits. LABORATORY DATA: WBC 16.5, RBC 2.29, hemoglobin 7.6, hematocrit 23.1, and platelets 294. Sodium 133, potassium 4.6, chloride 103, carbon dioxide 22, BUN 19, creatinine 0.82, estimated GFR greater than 90, glucose 139, and calcium 8.8. DIAGNOSTICS: There are no diagnostics to review today. IMPRESSION: 1. Postoperative day #4, status post laparoscopic cholecystectomy, hemodynamically stable. 2. Right renal mass, being followed by Urology. 3. Debility. PLAN: Increase activity per PT/OT. The patient is pending bed availability to inpatient rehab. The patient has been approved, but no bed available. The patient was examined with Dr. Small during morning rounds. Plan was discussed with the patient, who agrees. Job ID: [id number]
--- NOTE | 2018-10-30 15:29 | PDOC.PN ---
- Subjective Encounter Start Date: 10/30/18 Encounter Start Time: 15:25 Subjective: f/u s/p laparoscopic cholecystectomy POD #4. Feels ok overall and toleratin -: po intake. Short distance ambulation with PT. Awaiting rehab -: transfer. - Objective MAR Reviewed: Yes Vital Signs & Weight: Vital Signs (12 hours) Temp Pulse Resp BP BP Pulse Ox 10/30/18 11:41 98.7 F 71 16 143/83 H 98 10/30/18 08:30 84 147/85 H 10/30/18 08:04 98.2 F 84 18 147/85 H 99 10/30/18 04:00 97.8 F 82 20 121/75 98 Weight Admit Weight 305 lb Weight 310 lb 3.2 oz Most Recent Monitor Data Heart Rate from ECG 68 NIBP 132/75 NIBP BP-Mean 80 Respiration from ECG 18 SpO2 99 I&O: 10/29/18 10/30/18 10/31/18 06:59 06:59 06:59 Intake Total 1930 2380 Output Total 2075 2100 Balance -145 280 Result Diagrams: 10/30/18 04:14 10/30/18 04:13 Additional Labs: Accuchecks 10/30/18 10/30/18 10/29/18 11:36 06:30 20:55 POC Glucose 282 H 149 H 211 H 10/29/18 15:56 POC Glucose 171 H Laboratory Tests 10/25/18 10/26/18 10/27/18 04:50 05:00 04:46 WBC Hgb 8.2 L 7.6 L 7.0 L Plt Count 10/28/18 06:42 WBC 14.0 H Hgb 8.2 L Plt Count 311 Phys Exam - Physical Examination Constitutional: NAD HEENT: PERRLA, sclera anicteric, oral pharynx no lesions Neck: no nodes, no JVD, supple, full ROM diminished in bases Respiratory: no wheezing, no rales, no rhonchi S1, S2 Cardiovascular: RRR, no significant murmur, no rub, gallop obese Gastrointestinal: soft, non-tender, no distention, positive bowel sounds Musculoskeletal: pulses present, edema present Neurological: normal sensation, moves all 4 limbs Psychiatric: A&O x 3 Skin: normal turgor, cap refill <2 seconds Dx/Plan (1) Acute kidney injury Code(s): N17.9 - ACUTE KIDNEY FAILURE, UNSPECIFIED Status: Acute Comment: Improved, avoid nephrotoxic meds and limit contrast exposure, serial monitoring (2) Right renal mass Code(s): N28.89 - OTHER SPECIFIED DISORDERS OF KIDNEY AND URETER Status: Acute Comment: Plans for partial R nephrectomy when medically stable (3) Diabetes mellitus type 2 in obese Code(s): E11.69 - TYPE 2 DIABETES MELLITUS WITH OTHER SPECIFIED COMPLICATION; E66.9 - OBESITY, UNSPECIFIED Status: Chronic Comment: Continue Lantus, ISS, accuchecks ACHS (4) Hypertension Code(s): I10 - ESSENTIAL (PRIMARY) HYPERTENSION Status: Chronic Qualifiers: Hypertension type: essential hypertension Qualified Code(s): I10 - Essential (primary) hypertension Comment: Resume home BP regimen, serial monitoring (5) Hyponatremia Code(s): E87.1 - HYPO-OSMOLALITY AND HYPONATREMIA Status: Acute Comment: Improved, likely SIADH, serial Na+ monitoring - Plan PT/OT, adoption social worker, out of bed/ambulate, DVT proph w/SCDs Stable currently -: Continue OOB/PT -: Await Rehab bed availability -: Continue Amlodipine/Atenolol -: Serial H/H monitoring * .
[2018-10-30 16:28] VITALS: TEMP 98.6
[2018-10-30 17:01] VITALS: BP 151/84
--- NOTE | 2018-10-30 18:41 | PRG ---
DATE OF SERVICE: 10/30/2018 SUBJECTIVE: The patient is seen and examined with no new complaint. Noted to be hemodynamically stable. OBJECTIVE: HEENT: Unremarkable. CARDIOVASCULAR SYSTEM: First and second heart sounds were heard. RESPIRATORY SYSTEM: Clear to auscultation. DIGESTIVE SYSTEM: Revealed a benign abdomen. Positive bowel sounds. EXTREMITIES: No peripheral edema. SKIN: No new gross rash. LYMPHATICS: No peripheral lymphadenopathy. IMPRESSION: 1. Acute kidney injury, which has resolved. 2. Hyponatremia in the context of syndrome of inappropriate antidiuretic hormone, which is improve and stabilize. PLAN: 1. Continue current renal supportive measures. 2. Further management to be dependent on the clinical course. Job ID: [id number]
--- NOTE | 2018-10-30 19:36 | DIS ---
DATE OF ADMISSION: 10/24/2018 DATE OF DISCHARGE: 10/30/2018 This is Diana Verduzco NP dictating a report for Riccardo Small DO. DISCHARGE ATTENDING: Dr. Small. CONSULTS: 1. Hospital Medicine. 2. Gastroenterology. 3. Nephrology, Dr. Wyman. PROCEDURES: 1. ERCP on 10/24/2018, borderline size common bile duct. 2. On 10/24/2018, abdominal ultrasound; impression, cholelithiasis with possible choledocholithiasis. Area of heterogenous density, upper pole right kidney, possibly presenting a right renal mass. 3. Chest x-ray, hypoinflated examination without evidence of any acute cardiopulmonary process. Abdominal pelvis CT; liver within normal limits. Gallbladder within normal limits per CT imaging. Pancreas, there is motion artifact, questionable minimally inflammatory stranding adjacent to the pancreatic head. Spleen in normal limits. Adrenals in normal limits. Lobulated superior pole right renal cystic lesions/mass. Elevation in right hemidiaphragm with volume loss at right lung base. No renal or ureteral calculi were seen. 4. On 10/24/2018, endoscopic retrograde cholangiography with biliary sphincterotomy by Dr. Figueredo. 5. Renal ultrasound on 10/25/2018; impression, heterogeneous mass at the superior pole, right kidney, persists. Favored to not be cystic on sonogram. Renal cell neoplasm is of primary concern. 6. On 10/26/2018, laparoscopic cholecystectomy performed by Dr. Small. PRIMARY DIAGNOSES: 1. Laparoscopic cholecystectomy. 2. Right renal mass. SECONDARY DIAGNOSES: 1. Debility. 2. Hyponatremia. 3. Hyperbilirubinemia, resolving. 4. Hypertension. 5. Type 2 diabetes. 6. Acute kidney injury, resolved. DISCHARGE MEDICATIONS: 1. Acetaminophen 325 mg q.6 hours. 2. Amlodipine 5 mg p.o. daily. 3. Aspirin 81 mg daily. 4. Atenolol 50 mg daily. 5. Vitamin B12, 1000 mcg daily. 6. Colace 100 mg cap as needed twice a day. 7. Ferrous sulfate 325 mg p.o. b.i.d. with meals. 8. Folic acid 1 mg daily. 9. Melatonin 6 mg p.o. at bedtime. 10. Multivitamin one tab. 11. MiraLAX as needed. 12. Flomax 0.4 mg p.o. daily. 13. Thiamine 100 mg tab daily. 14. Tramadol 100 mg p.o. q.6 hours. 15. Lantus 25 units subcu q.a.m. 16. Lantus 30 units subcu at bedtime. There are no discontinued medications. HISTORY OF PRESENT ILLNESS AND HOSPITAL COURSE: This is a 63-year-old gentleman, presented to the ER with abdominal pain and general malaise, worse over the last 2 weeks. The patient had a 100-pound weight loss recently. The patient had a colonoscopy 2 years ago secondary to hematochezia without any findings. The patient was evaluated by his PCP who found elevated liver profile and elevated bilirubin. The patient presented with jaundice and elevated renal function. Postop, the patient was able to work with Physical Therapy very minimally. The patient was finally encouraged to go to inpatient rehab for continued physical and occupational therapy. There was an increased length of stay, pending rehab, and then having a bed available. On the day of discharge, the patient's exam was unremarkable including cardiopulmonary and GI exam. The patient was examined by Dr. Small on the day of discharge. The patient was deemed stable with stable vital signs. The patient had no complaints at this time. DISPOSITION: Stable. DISCHARGE INSTRUCTIONS: 1. Location: Inpatient rehab. 2. Diet: Diabetic diet. 3. Activity: As tolerated. No lifting greater than 20 pounds. 4. Followup: a. Follow up with Dr. Small's office in 2 weeks with lab work prior to appointment. b. Follow up with Urology as directed. c. Follow up with primary care physician. d. Follow up with Nephrology as directed. Job ID: [id number]
--- NOTE | 2018-10-30 19:37 | PRG ---
DATE OF SERVICE: 10/29/2018 SUBJECTIVE: This is a 63-year-old gentleman, postop day #3, status post laparoscopic cholecystectomy. The patient had no overnight events. The patient with normal bowel function. The patient voices no complaints at this time. OBJECTIVE: VITAL SIGNS: Temperature 98, pulse 95, respirations 18, SpO2 of 98% on room air, and blood pressure 139/82. GENERAL: Obese male, in no acute distress. LUNGS: Equal chest rise and fall. No respiratory distress. ABDOMEN: Soft and obese, nontender, incisions are intact, clean, and dry. LABORATORY DATA: Hemoglobin 7.4, hematocrit 23.3, and platelet count 287. IMPRESSION: 1. Postop day #3, status post laparoscopic cholecystectomy. The patient remains stable. 2. Right renal mass being followed by Urology. 3. Debility. PLAN: Continue physical and occupational therapy. The patient is pending placement to inpatient rehab for continued physical and occupational therapy. The plan was discussed with the attending physician, who agrees. Job ID: [id number]
[2018-10-30] MEDS ORDERED: METFORMIN HCL 1000 MG PO SCH (21:00)
[2018-10-30] MEDS ORDERED: Simvastatin 20 MG TAB PO SCH (21:00)
--- NOTE | 2018-10-31 02:26 | DIS ---
DATE OF ADMISSION: 10/24/2018 DATE OF DISCHARGE: 10/30/2018 DISCHARGE DIAGNOSES: 1. Acute kidney injury, resolving. 2. Right renal mass. 3. Diabetes mellitus type 2, insulin requiring. 4. Hypertension, chronic and stable. 5. Hyponatremia, improved. 6. Status post laparoscopic cholecystectomy secondary to acute cholecystitis with cholelithiasis, 10/26/2018. PRIMARY SERVICE ATTENDIN. Dr. Small. 2. Petty for medical management. 3. Dr. Wyman for nephrology service. PERTINENT LAB AND X-RAY FINDINGS: Sodium ranged between 127 to 133. Lactic acid level ranged between 1.4 to 3.0. Total iron 93, TIBC 155%, saturation 60, ferritin 1352. TSH 0.76, free T4 of 1.1. BNP 275. CBC showed a white blood cell count ranging between 9.6 to 16.5, hemoglobin ranged between 7.0 to 10.2. Hepatitis A, B, and C panel 10/24/2018, negative. Blood cultures x2 dated 10/24/2018 showed no growth at 5 days. Abdominal ultrasound dated 10/24/2018, showed cholelithiasis with choledocholithiasis. Right renal mass. CT of the abdomen and pelvis dated 10/24/2018, showed lobulated superior pole right renal cystic lesion/mass. 2D transthoracic echocardiogram dated 10/25/2018, showed ejection fraction of 55% to 60%. Diastolic dysfunction. Mild left atrial enlargement. Bilateral renal ultrasound dated 10/25/2018, showed heterogeneous mass at the superior pole of the right kidney. Gallbladder pathology dated 10/26/2018, showed acute on chronic cholecystitis. HOSPITAL COURSE: The patient was initially admitted under the General Surgery Service after presenting with abdominal pain. The patient with significant weight loss of approximately 100 pounds, undergoing extensive evaluation including multiple imaging studies of the abdomen including ultrasound and CAT scan modalities. Initial lipase was noted at 700, prompting attention to the right upper quadrant and likely dilated common bile duct with cholelithiasis and concern for choledocholithiasis. The patient received IV cefepime and Flagyl in the emergency department and was evaluated by the surgical service. The patient underwent a laparoscopic cholecystectomy on 10/26/2018 without complication after ERCP was performed with sphincterotomy. No specific evidence of any filling defect or stricture was visualized and multiple balloon sweeps of the common bile duct were performed with clear bile extracted. Postoperatively, the patient was managed for multitude of metabolic derangements including hyponatremia and acute kidney injury. The patient's overall renal status improved with supportive management, IV fluids, and avoidance of nephrotoxic agents. The patient advanced to clear liquids tolerating without difficulty and finally progressing to a regular oral intake. The patient was incidentally noted with right renal mass with recommendations for outpatient followup and consideration for Urology evaluation. The patient was evaluated by Urology Service during his inpatient stay with recommendations for consideration of partial nephrectomy 4 to 6 weeks after discharge. The patient was deemed appropriate candidate for ongoing physical and occupational therapy due to severe deconditioning and was approved for inpatient rehabilitation. The patient ready for transfer on 10/30/2018. I have examined the patient at the time of discharge and discussed followup instructions. The patient was transferred on 10/30/2018. DISCHARGE MEDICATIONS: 1. Amlodipine 5 mg p.o. daily. 2. Enteric-coated aspirin 81 mg p.o. daily. 3. Atenolol 50 mg p.o. daily. 4. Lisinopril/hydrochlorothiazide 20/12.5 mg 1 tablet p.o. daily. 5. Glargine insulin 25 units subcutaneously q.a.m. and 30 units subcutaneously at bedtime. 6. Melatonin 6 mg p.o. at bedtime p.r.n. 7. Multivitamin 1 tablet p.o. daily. 8. MiraLAX 17 g p.o. daily. 9. Tamsulosin 0.4 mg p.o. daily. 10. Thiamine 100 mg p.o. daily. 11. Tramadol 50 mg 1 to 2 tablets p.o. q.6 hours p.r.n. pain. FOLLOWUP: The patient may follow up with Dr. Small within 2 weeks of discharge. The patient will follow up with Dr. Garo Howard and to call the office for appointment time and date. CONDITION ON DISCHARGE: Stable. ACTIVITY: Ad-jenny. DIET: ADA and heart healthy. CODE STATUS: Full. DISPOSITION: Discharged to [facility] Inpatient Rehabilitation, 10/30/2018. Job ID: [id number]
[2018-10-31] MEDS ORDERED: Lisinopril/Hydrochlorothiazide 20 mg/12.5 mg Tablet PO SCH (09:00)
[2018-10-31] MEDS ORDERED: Aspirin 81 mg Enteric Coated Tablet PO SCH (09:00)
--- NOTE | 2018-10-31 11:08 | PQF ---
Date: 10-31-18 ATTN: TITI WATSON Please exercise your independent, professional judgment in responding to the clarification form. Clinical indicators are provided on the bottom of this form for your review Please check appropriate box(s): [ ] Protein Calorie Malnutrition: [ ] Mild [ ] Moderate [ ] Severe [ ] Other Malnutrition (please specify) __ [ x ] Other diagnosis ___The weight loss is positive and needs to continue, pt still over 300lbs [ ] Unable to determine In addition, please specify: Present on Admission (POA): [ ] Yes [ x ] No [ ] Unable to determine CLINICAL INDICATORS - SIGNS / SYMPTOMS / LABS: The H&P, GI consult ( 10-24-18) & hospitalist consult ( 10-25-18) all document 100 lb weight loss that was unintentional. MOLDED CANDLES WICKER CONSULT 10-25-18:: reports having a poor appetite "on and off." Reports eating a late lunch usually and then has 1-2 mixed drinks with Ritz peanut butter crackers at night typically. States food doesn't even look/sound good when he sees commercials for restaurants. Daughter at bedside states he used to be a very big eater and now "eats like a bird. " UBW was 399 lbs in June of last year, TODAY 310 MOLDED CANDLES WICKER CONSULT 10-25-18: Nutrition assmt 10/25: Nutrition diagnosis: Malnutrition r/t cholelithiasis, lack of appetite, as evidenced by: inadequate energy intake for > 12 months , 24% weight loss in last 16 months in the context of mild-moderate malnutrition RISK FACTORS: High probability of renal cell carcinoma, obstructive jaundice ( CASE ) , cholecystitis TREATMENT: OP REPORT: 10-24-18: ERCP, Laparoscopic cholecystectomy, Urology consult ( 10-25-18) Moderate Malnutrition (in acute illness) Energy Intake: <75% of estimated energy requirement for > 7 days Weight Loss: 1-2%/1 week; 5%/ 1 month; 7.5%/3 months Other: mild body fat loss; mild muscle mass loss; mild fluid accumulation; Severe Malnutrition (in acute illness) Energy Intake: < 50% of estimated energy requirement for > 5 days Weight Loss: >1-2%/1 week; >5%/1 month; >7.5%/3 months Other: moderate body fat loss; moderate muscle mass loss; moderate- severe fluid accumulation; measurably reduced sailor strength Moderate Malnutrition (in chronic illness) Energy Intake: <75% of estimated energy requirement for >1 month Weight Loss: 5%/1 month; 7.5%/3 months; 10%/6 months; 20%/1 year Other: mild body fat loss; mild muscle mass loss; mild fluid accumulation Severe Malnutrition (in chronic illness) Energy Intake: <75% of estimated energy requirement for >1 month Weight Loss: >5%/1 month; >7.5%/3 months; >10%/6 months; >20%/1 year Other: severe body fat loss; severe muscle mass loss; severe fluid accumulation ; measurably reduced sailor strength (This form is maintained as a part of the permanent medical record) 2014 [employer]. All Rights Reserved CINDY [email or web address] Office: [phone] EMERALD
== END 2018-10-30 20:00 | DRG 853 ==
LOC: ERS 10:43 → IMCU/EMU 14:42 → SURG A 10-26 12:03
PROVIDERS: ADMIT Internal Medicine; ATTEND Internal Medicine
PROC: 0F798ZZ Dilation of Common Bile Duct, Via Natural or Artificial Opening Endoscopic (ICD-10-PCS; 2018-10-24)
PROC: 0FT44ZZ Resection of Gallbladder, Percutaneous Endoscopic Approach (ICD-10-PCS; principal; 2018-10-26)
PROC: 30233N1 Transfusion of Nonautologous Red Blood Cells into Peripheral Vein, Percutaneous Approach (ICD-10-PCS; 2018-10-27)
DX: A41.9 Sepsis, unspecified organism (principal); K85.90 Acute pancreatitis without necrosis or infection, unspecified; N17.9 Acute kidney failure, unspecified; E87.2 Acidosis; K80.63 Calculus of gallbladder and bile duct with acute cholecystitis with obstruction; D62 Acute posthemorrhagic anemia; E22.2 Syndrome of inappropriate secretion of antidiuretic hormone; R65.20 Severe sepsis without septic shock; E11.65 Type 2 diabetes mellitus with hyperglycemia; E87.8 Other disorders of electrolyte and fluid balance, not elsewhere classified; K21.9 Gastro-esophageal reflux disease without esophagitis; N28.89 Other specified disorders of kidney and ureter; N18.9 Chronic kidney disease, unspecified; I12.9 Hypertensive chronic kidney disease with stage 1 through stage 4 chronic kidney disease, or unspecified chronic kidney disease; E11.22 Type 2 diabetes mellitus with diabetic chronic kidney disease; R63.4 Abnormal weight loss; K83.8 Other specified diseases of biliary tract; R53.81 Other malaise; Z88.0 Allergy status to penicillin; Z79.82 Long term (current) use of aspirin; Z68.37 Body mass index [BMI] 37.0-37.9, adult
CPT/HCPCS: 36415; 36416; 36430; 71045; 74176; 74330; 76705; 76770; 80048; 80053; 80074; 80076; 82533; 82728; 83540; 83550; 83605; 83615; 83690; 83735; 83880; 83930; 83935; 83970; 84100; 84300; 84439; 84443; 84478; 84484; 85007; 85014; 85018; 85025; 85027; 85049; 85610; 85730; 86850; 86900; 86901; 87040; 88304; 93005; 93306; J0171; J0692; J1100; J1610; J1644; J1815; J2001; J2370; J2405; J2704; J3010; J3475; J3490; J7050; P9016

== ENCOUNTER 2018-11-17 18:12 | Inpatient (IN) | payer MEDICARE, OTHER ==
[~2018-11-17 18:12] MED LIST: ISOVUE-370 76%-LOCM 1 ML ONE
[2018-11-17 19:11] LABS: #Eosinphils 0.2 thou/uL (0.0-0.7); #Lymphocytes 1.3 thou/uL (1.20-3.40); #Monocytes 0.5 thou/uL (0.11-0.59); #Neutrophils 4.6 thou/uL (1.40-6.50); %Basophils 0.3 % (0.0-1.0); %Eosinophils 2.6 % (0.0-10.0); %Lymphocytes 19.9 % (21.0-51.0); %Monocytes 7.7 % (0.0-10.0); %Neutrophils 69.5 % (42.0-75.0); Hemoglobin 8.6 g/dL (14.0-18.0); Mean Corpuscular HGB CONC 32.1 g/dL (32.0-36.0); Mean Corpuscular Hemoglobin 33.4 pg (27.0-31.0); Platelet Count 268 thou/uL (130-400); RBC Distribution Width 15.1 % (11.5-14.5); Red Blood Cell (RBC) Count 2.56 mill/uL (4.70-6.10); White Blood Cell (WBC) Count 6.7 thou/uL (4.8-10.8)
[2018-11-17 19:31] LABS: ALT (SGPT) 12 U/L (8-55); AST (SGOT) 17 U/L (5-34); Albumin 3.4 g/dL (3.4-4.8); Alkaline Phosphatase 181 U/L (40-150); Anion Gap 15 mmol/L (10-20); BUN (Urea Nitrogen) 12 mg/dL (8.4-25.7); Bilirubin, Total 1.3 mg/dL (0.2-1.2); Calc. Creatinine Clearance 0 mL/min (70-130); Calcium 8.6 mg/dL (7.8-10.44); Carbon Dioxide 22 mmol/L (23-31); Chloride 104 mmol/L (98-107); Estimated GFR-MDRD 72; Globulin 3.1 g/dL (2.4-3.5); Glucose 143 mg/dL (80-115); Potassium 4.4 mmol/L (3.5-5.1); Protein, Total 6.5 g/dL (5.8-8.1); Sodium 137 mmol/L (136-145)
--- NOTE | 2018-11-17 19:33 | RAD ---
Exam: Chest one view HISTORY:Cough Comparison: 10/24/2018 FINDINGS: Lungs: Interstitial prominence bilaterally. Bibasilar densities. Elevation of right hemidiaphragm and obscuring right lung base. Cardiac silhouette:Enlarged, similar appearing Pulmonary vessels: Central prominence Pleural Spaces: Clear Pneumothorax: None Osseous abnormalities: None of acuity. IMPRESSION: Findings favor CHF with fluid overload
[2018-11-17 19:52] LABS: Bilirubin Negative (Negative); Blood, Urine Negative (Negative); Clarity Clear (Clear); Glucose, Urine (Dipstick) Normal (Negative); Leukocyte Negative Leu/uL (Negative); Nitrite Negative (Negative); Protein, Urine (Dipstick) 70 mg/dL (Neg-Trace); RBC/HPF 0-3 HPF (0-3); Squamous Epithelial 0-3 HPF (0-3); WBC/HPF 0-3 HPF (0-3)
--- NOTE | 2018-11-17 20:10 | CT ---
CTA with contrast with 3-D volume rendering Clinical history: Emergency exam for hypoxia and shortness of breath FINDINGS: No large, central pulmonary embolus is evident. There are scattered vascular disease with c oronary artery calcium. Bilateral mild pleural fluid, with adjacent pulmonary parenchymal opacities. No pneumothorax. There is elevation the right hemidiaphragm. Partially imaged mass of the right kidney is redemonstrated, as was depicted on 10/24/2018 CT exam. IMPRESSION: 1. No evidence of pulmonary embolus. 2. Bilateral pleural fluid and parenchymal consolidation. 3. Redemonstration of right renal mass as was depicted on 10/24/2018 CT exam Transcribed Date/Time: 11/17/2018 8:42 PM
[2018-11-17 20:13] LABS: Bacteria/HPF None Seen HPF (None Seen)
[2018-11-17] MEDS ORDERED: Furosemide 20 MG/2 ML VIAL ONE (20:47)
[2018-11-17 22:13] VITALS: BMI 40.1
[2018-11-18 07:42] LABS: #Basophils 0.1 thou/uL (0.0-0.2); #Eosinphils 0.2 thou/uL (0.0-0.7); #Lymphocytes 1.1 thou/uL (1.20-3.40); #Monocytes 0.4 thou/uL (0.11-0.59); #Neutrophils 3.3 thou/uL (1.40-6.50); %Basophils 1.1 % (0.0-1.0); %Eosinophils 3.3 % (0.0-10.0); %Lymphocytes 21.4 % (21.0-51.0); %Monocytes 8.7 % (0.0-10.0); %Neutrophils 65.5 % (42.0-75.0); Hemoglobin 8.1 g/dL (14.0-18.0); Mean Corpuscular HGB CONC 31.3 g/dL (32.0-36.0); Mean Corpuscular Hemoglobin 32.6 pg (27.0-31.0); Mean Platelet Volume 6.8 fL (7.4-10.4); Platelet Count 231 thou/uL (130-400); RBC Distribution Width 15.1 % (11.5-14.5); Red Blood Cell (RBC) Count 2.47 mill/uL (4.70-6.10)
[2018-11-18 08:04] LABS: Anion Gap 14 mmol/L (10-20); BUN (Urea Nitrogen) 11 mg/dL (8.4-25.7); Calc. Creatinine Clearance 171 mL/min (70-130); Calcium 8.3 mg/dL (7.8-10.44); Carbon Dioxide 22 mmol/L (23-31); Chloride 104 mmol/L (98-107); Estimated GFR-MDRD 84; Glucose 154 mg/dL (80-115); Sodium 136 mmol/L (136-145)
[2018-11-18] MEDS ORDERED: Prevnar 13-Val Conj/PF 0.5 ML SYRINGE IM ONE (09:00)
[2018-11-18] MEDS ORDERED: HumaLOG 300 UNITS/3 ML VIAL SC PRN ×2 (09:00)
[2018-11-18] MEDS ORDERED: Acetaminophen 325 MG TAB PO PRN (09:00)
[2018-11-18] MEDS ORDERED: Dextrose 50% Abboject 50 ML SYRINGE SLOW IVP PRN (09:00)
[2018-11-18] MEDS ORDERED: Dextrose 5% in Water 1,000 ML IV PRN (09:00)
[2018-11-18] MEDS ORDERED: Furosemide 40 MG/4 ML VIAL SLOW IVP SCH ×2 (09:15→16:00)
[2018-11-18] MEDS: Aspirin 81 mg Enteric Coated Tablet PO SCH (09:47)
[2018-11-18] MEDS: Carvedilol 3.125 MG TAB PO SCH ×2 (09:47→20:21)
[2018-11-18 10:24] LABS: Iron 52 ug/dL (65-175); Iron Binding Capacity, Total 175 mcg/dL (261-462)
[2018-11-18 10:56] LABS: Folate (Folic Acid) 10.6 ng/mL (7.0-31.4)
--- NOTE | 2018-11-18 17:01 | CON ---
DATE OF CONSULTATION: 11/18/2018 REASON FOR CONSULTATION: Congestive heart failure. PRIMARY VOCATIONAL PLACEMENT SPECIALIST: None. HISTORY OF PRESENT ILLNESS: Mr. Castillo is a very pleasant 63-year-old gentleman, who recently underwent cholecystectomy. He was in rehab for up to 12 days. He went home for 6 days. He states he developed increased lower extremity edema and shortness of breath. No chest pain or pressure noted. No previous history of underlying coronary artery disease. PAST MEDICAL HISTORY: Hypertension and diabetes mellitus. ALLERGIES: PENICILLIN. HOME MEDICATIONS: Include; 1. Zocor. 2. Protonix. 3. Metformin. 4. Lisinopril/hydrochlorothiazide. 5. Atenolol. 6. Aspirin. 7. Amlodipine. SOCIAL HISTORY: No current tobacco or alcohol use. REVIEW OF SYSTEMS: A 10-point review of systems is reviewed as above, otherwise negative. PHYSICAL EXAMINATION: GENERAL: Patient is a pleasant male, who is in no acute distress. The patient appears their stated age. VITAL SIGNS: Blood pressure 113/59, pulse 91, and temp 98.6. NEUROLOGIC: The patient is alert and oriented x3 with no focal neurologic deficits. HEENT: Sclerae without icterus. Mouth has moist mucous membranes with normal pallor. NECK: No JVD. Carotid upstroke brisk. No bruits bilaterally. LUNGS: Mild crackles noted bilaterally. BACK: No scoliosis or kyphosis. CARDIAC: Regular rate and rhythm with normal S1 and S2. No S3 or S4 noted. No significant rubs, murmurs, thrills, or gallops noted throughout the precordium. PMI is not displaced. There is no parasternal heave. ABDOMEN: Soft, nontender, nondistended. No peritoneal signs present. No hepatosplenomegaly. No abnormal striae. EXTREMITIES: 1+ pitting edema. SKIN: No gross abnormalities. PERTINENT LABORATORY DATA: Hemoglobin 8.1. BNP of 848, creatinine 0.9. Echo Doppler. Technically difficult study due to body habitus. Overall, LVEF does appear at the lower limits of normal. Mild MR and TR. Diastolic function not assessed. IMPRESSION: 1. Edema. 2. Shortness of breath. 3. Likely diastolic dysfunction. RECOMMENDATIONS: Mr. Castillo has diuresed on Lasix therapy. Okay to continue with aspirin, atorvastatin, and carvedilol. Continue with IV Lasix. We will likely switch to p.o. in the next 24 hours. Diastolic dysfunction likely exacerbated by anemia. Otherwise, we will continue to treat aggressively. No other further recommendations outside medical therapy recommended. Job ID: [id number]
--- NOTE | 2018-11-18 19:02 | HP ---
CHIEF COMPLAINT: Difficulty breathing. HISTORY OF PRESENT ILLNESS: This is a 63-year-old male with history of hypertension, diabetes, recent lap phong, right renal mass awaiting surgery, who presents to the emergency room due to low oxygen levels and shortness of breath. The patient reports that this has been ongoing for few weeks and progressively worsening. His home healthcare nurse identified an oxygen level in the mid 80s , and he was sent to the emergency room. He also has easy dyspnea on exertion, nausea , and a nonproductive cough. There is no prior history of this. The patient also endorses chills, chronic paresthesias of his feet, and decreased appetite. He denies any fevers, chest pain, palpitations, diarrhea, or hematuria. He denies any other symptoms currently and reports he is feeling better after the emergency room treatment. In the emergency room, the patient is given Lasix 20 mg IV for new onset heart failure, and hospitalist called for admission. ALLERGIES: PENICILLIN. MEDICATIONS: The patient is unaware of his medications, and in review of the home medicines on the chart, 1. Tylenol 650 mg q.6 hours. 2. Amlodipine 5 mg daily. 3. Aspirin 81 mg daily. 4. Atenolol 50 mg daily. 5. Vitamin B12 of 1000 mcg daily. 6. Colace 100 mg b.i.d. 7. Iron 325 mg b.i.d. with meals. 8. Folic acid 1 mg daily. 9. Lisinopril-hydrochlorothiazide is listed; however, the patient states he is not taking that. 10. Melatonin 6 mg at bedtime. 11. Metformin 1000 mg b.i.d. 12. Multivitamin daily. 13. Pantoprazole 40 mg daily. 14. MiraLAX 17 g daily. 15. Senokot-S 2 tablets b.i.d. 16. Simvastatin 20 mg at bedtime. 17. Flomax 0.4 mg daily. 18. Thiamine 100 mg daily. 19. Tramadol every 6 hours as needed. The patient reports he is not needing that. PAST MEDICAL HISTORY: 1. Diabetes mellitus. 2. Hypertension. 3. Dyslipidemia. 4. Right kidney mass scheduled for nephrectomy concerning for cancer. 5. Chronic paresthesias of his feet. PAST SURGICAL HISTORY: Lap phong in October of 2018 at this facility. SOCIAL HISTORY: The patient lives alone, uses tobacco daily, no alcohol since his last admission. He is a full code and his surrogate decision makers are his daughters, Maryellen or Rekha. FAMILY HISTORY: Significant for brain tumor in mother, who and a father who of an early IN. REVIEW OF SYSTEMS: Positive for chills, paresthesias of his feet, nausea, decreased appetite, and shortness of breath. Negative for fevers, chest pain, palpitations, diarrhea, hematuria. All remaining review of systems are reviewed and negative. PHYSICAL EXAMINATION: VITAL SIGNS: Blood pressure 143/63, temperature 98.5, pulse 82, respirations 18 , saturations 96% on 2 L nasal cannula. GENERAL: He is awake, alert, responsive, speaking in short phrases, in no apparent distress. HEENT: Pupils equal, round, and reactive to light. Oral mucosa is pink and moist. NECK: Supple, nontender. LYMPHATICS: No palpable cervical or supraclavicular lymphadenopathy. LUNGS: He has decreased breath sounds to the mid lung talbot. No audible wheezing, rhonchi, or rales. HEART: Normal S1 and S2. Regular rate and rhythm. No significant murmur. ABDOMEN: Soft, present bowel sounds. Nontender. Nondistended. EXTREMITIES: No pitting edema, clubbing, or cyanosis. SKIN: The patient has multiple small areas of crusting on his lower extremities. He reports present since rehab, and nursing staff identified a buttock wound on skin exam. NEUROLOGIC: No gross deficits. PSYCH: Appears euthymic. AYOUB FINDINGS AND TEST RESULTS: EKGs personally reviewed, sinus rhythm, left axis deviation, a QT corrected of 454. No ST changes, inverted T-waves V1 through V4 and an abnormal R-wave progression and incomplete right bundle-branch block. Chest x-ray shows volume overload, consistent with CHF. CT angiogram, no evidence of PE, bilateral pleural fluid and parenchymal consolidation and right renal mass. Echocardiogram, October 25, 2018, diastolic dysfunction with an EF of 55% to 60. IMPRESSION: 1. New onset heart failure with known diastolic dysfunction based on echocardiogram last month and increasing shortness of breath. 2. Anemia, consistent with his prior hospitalization, microcytic. 3. Diabetes mellitus, unknown control. 4. Hypertension. 5. Dyslipidemia. 6. Right renal mass, awaiting surgery. 7. Gluteal wound. PLAN: 1. Admission in the hospital. 2. Continuing diuresis with IV Lasix, repeat echocardiogram and Cardiology consultation. 3. Changing his atenolol to carvedilol at low dose with hold parameters, and we will add lisinopril at a low dose also with hold parameters. 4. Insulin sliding scale. Holding his metformin given the contrast study yesterday. 5. We will check vitamin and iron levels for the anemia, anticipate transfusion if less than 8 hemoglobin, and check a fecal occult study. 6. Wound Care consultation for the buttock wound. 7. Continuing some of his selective home medications to include a statin, vitamin supplements, tamsulosin. 8. Anticipated length of stay is 3 to 4 days. Will be based on response to therapy. 9. DVT prophylaxis, pneumatic compression devices. 10. GI prophylaxis not indicated. 11. Code status is full and surrogate decision maker is as above. Reviewed the plan of care with the patient, who demonstrates understanding. No questions or further needs at end of evaluation. The patient is at high risk given age, comorbidities, and current presentation. Job ID: [id number] [facility]X HOSPITALAbel
[2018-11-18] MEDS: Atorvastatin Calcium 10 MG TAB PO SCH (20:21)
[2018-11-18] MEDS: Lisinopril 5 MG TAB PO SCH (20:22)
[2018-11-18] MEDS: Docusate 100 MG CAP PO SCH (20:22)
[2018-11-19] MEDS ORDERED: Furosemide 40 MG/4 ML VIAL SLOW IVP SCH ×2 (06:00→08:45)
[2018-11-19 06:17] LABS: #Eosinphils 0.2 thou/uL (0.0-0.7); #Lymphocytes 1.3 thou/uL (1.20-3.40); #Monocytes 0.5 thou/uL (0.11-0.59); #Neutrophils 2.9 thou/uL (1.40-6.50); %Basophils 0.7 % (0.0-1.0); %Eosinophils 3.6 % (0.0-10.0); %Lymphocytes 25.7 % (21.0-51.0); %Monocytes 10.4 % (0.0-10.0); %Neutrophils 59.7 % (42.0-75.0); Mean Corpuscular HGB CONC 30.9 g/dL (32.0-36.0); Mean Corpuscular Hemoglobin 29.8 pg (27.0-31.0); Mean Corpuscular Volume 96.5 fL (78.0-98.0); Mean Platelet Volume 7.8 fL (7.4-10.4); Platelet Count 199 thou/uL (130-400); RBC Distribution Width 16.5 % (11.5-14.5); Red Blood Cell (RBC) Count 2.67 mill/uL (4.70-6.10); White Blood Cell (WBC) Count 4.9 thou/uL (4.8-10.8)
[2018-11-19 06:33] LABS: Anion Gap 12 mmol/L (10-20); BUN (Urea Nitrogen) 12 mg/dL (8.4-25.7); Calc. Creatinine Clearance 175 mL/min (70-130); Calcium 8.2 mg/dL (7.8-10.44); Carbon Dioxide 29 mmol/L (23-31); Chloride 100 mmol/L (98-107); Estimated GFR-MDRD 86; Glucose 159 mg/dL (80-115); Potassium 3.5 mmol/L (3.5-5.1); Sodium 137 mmol/L (136-145)
[2018-11-19] MEDS: Lisinopril 5 MG TAB PO SCH (08:45)
[2018-11-19] MEDS: Tamsulosin HCl 0.4 MG CAP PO SCH (08:45)
[2018-11-19] MEDS: Aspirin 81 mg Enteric Coated Tablet PO SCH (08:45)
[2018-11-19] MEDS: Docusate 100 MG CAP PO SCH ×2 (08:46→20:17)
[2018-11-19] MEDS: Folic Acid 1 MG TAB PO SCH (08:46)
[2018-11-19] MEDS: Cyanocobalamin (Vitamin B-12) 1,000 MCG TAB PO SCH (08:47)
[2018-11-19] MEDS: Carvedilol 3.125 MG TAB PO SCH ×2 (08:47→20:17)
[2018-11-19] MEDS ORDERED: Furosemide 100 MG/10 ML VIAL SLOW IVP SCH ×2 (09:00→14:00)
[2018-11-19] MEDS ORDERED: Furosemide 20 MG/2 ML VIAL SLOW IVP SCH (09:00)
--- NOTE | 2018-11-19 10:24 | PDOC.PN ---
- Subjective Encounter Start Date: 11/19/18 (f/u heart failure) Encounter Start Time: 10:22 Subjective: Pt reports his breathing is improved. Denies any chest pain, -: abd pain/n/v - Objective Resuscitation Status - Order Detail: 11/18/18 09:00 Resuscitation Status Routine Resuscitation Status: FULL: Full Resuscitation Vital Signs & Weight: Vital Signs (12 hours) Temp Pulse Resp BP BP Pulse Ox 11/19/18 08:45 85 123/69 11/19/18 08:41 98.0 F 84 16 123/69 96 11/19/18 03:22 98.1 F 78 20 110/62 95 11/19/18 00:47 97.7 F 86 18 112/63 96 Weight Admit Weight 349 lb Weight 321 lb 6.4 oz I&O: 11/18/18 11/19/18 11/20/18 06:59 06:59 06:59 Intake Total 200 990 Output Total 950 4325 Balance -750 -8295 Result Diagrams: 11/19/18 05:44 11/19/18 05:44 Additional Labs: Accuchecks 11/19/18 11/18/18 11/18/18 05:50 19:59 17:12 POC Glucose 168 H 154 H 197 H EKG Reviewed by me: Yes (tele - sinus 60-80's) Phys Exam - Physical Examination Constitutional: NAD Respiratory: no wheezing, no rales, no rhonchi decreased breath sounds at bases Cardiovascular: RRR, no significant murmur Gastrointestinal: soft, non-tender, no distention, positive bowel sounds 1+ pitting edema bilateral Neurological: non-focal Psychiatric: normal affect Deviation from normal: stage 2 gluteal ulcer left, stage 1 ulcer on right Dx/Plan (1) Diastolic heart failure Code(s): I50.30 - UNSPECIFIED DIASTOLIC (CONGESTIVE) HEART FAILURE Status: Acute Qualifiers: Heart failure chronicity: acute Qualified Code(s): I50.31 - Acute diastolic (congestive) heart failure (2) Anemia Code(s): D64.9 - ANEMIA, UNSPECIFIED Status: Acute (3) Diabetes mellitus Code(s): E11.9 - TYPE 2 DIABETES MELLITUS WITHOUT COMPLICATIONS Status: Chronic Qualifiers: Diabetes mellitus type: type 2 (4) Renal mass Code(s): N28.89 - OTHER SPECIFIED DISORDERS OF KIDNEY AND URETER Status: Acute (5) Wound of skin Code(s): T14.8XXA - OTHER INJURY OF UNSPECIFIED BODY REGION, INITIAL ENCOUNTER Status: Acute - Plan * diastolic heart failure * appreciate Cardiology consult * on IV lasix, beta-dequan, ponce-i, statin * DM - holding metformin due to contrast study on admission - anticipate adding back tomorrow * bp's well controlled * continue selective home meds * wound care to gluteal ulcers - present on admission * * dvt prophy - scds * gi prophy - not indicated * code status full * * reviewed plan of care with patient, no questions or further needs at end of eval * anticipate home in a few days based on transition to oral furosemide * Addendum 17:54- reviewed bp's from today and low. Will change lisinopril to 2.5 mg once daily with hold parameters.
[2018-11-19] MEDS ORDERED: Polyethylene Glycol 3350 17 GM Packet PO SCH ×2 (10:30→12:45)
--- NOTE | 2018-11-19 14:05 | PDOC.CTH ---
Cardiology Progress Note - Subjective No complaints. Hypotensive in the last hours. Asymptomatic. - Objective Vital Signs Temp Pulse Pulse Pulse Resp BP BP 11/19/18 12:45 98.3 F 98 16 11/19/18 11:02 102 H 113 H 100/59 L 11/19/18 08:45 85 123/69 11/19/18 08:41 98.0 F 84 16 11/19/18 08:00 11/19/18 03:22 98.1 F 78 20 BP BP BP Pulse Ox Pulse Ox Pulse Ox 11/19/18 12:45 91/55 L 96 11/19/18 11:02 128/61 97 96 11/19/18 08:45 11/19/18 08:41 123/69 96 11/19/18 08:00 96 11/19/18 03:22 110/62 95 Admit Weight 349 lb Weight 321 lb 6.4 oz 11/18/18 11/19/18 11/20/18 06:59 06:59 06:59 Intake Total 200 990 Output Total 950 4325 Balance -750 -3335 - Physical Examination General/Neuro: alert & oriented x3 Neck: no JVD present Lungs: CTA Heart: RRR Abdomen: NT/ND Extremities: other: (trace edema) - Telemetry Telemetry Rhythm: SR - Labs Result Diagrams: 11/19/18 05:44 11/19/18 05:44 Troponin/CKMB Troponin I Less than 0.010 ng/mL (< 0.028) 11/17/18 18:35 - Assessment/Plan 1. Acute volume overload s/p phong Hold IV lasix for now. 8lb weight loss and good output overnight. Now hypotensive. Will monitor BP and output today. Consider resuming lasix tomorrow.
[2018-11-19] MEDS: Atorvastatin Calcium 10 MG TAB PO SCH (20:17)
[2018-11-19] MEDS: Senokot S 8.6-50 MG TAB PO SCH (20:18)
[2018-11-20 04:43] LABS: #Eosinphils 0.2 thou/uL (0.0-0.7); #Lymphocytes 1.3 thou/uL (1.20-3.40); #Monocytes 0.5 thou/uL (0.11-0.59); #Neutrophils 3.1 thou/uL (1.40-6.50); %Basophils 0.1 % (0.0-1.0); %Eosinophils 3.3 % (0.0-10.0); %Lymphocytes 25.5 % (21.0-51.0); %Monocytes 10.3 % (0.0-10.0); %Neutrophils 60.7 % (42.0-75.0); Hemoglobin 8.3 g/dL (14.0-18.0); Mean Corpuscular HGB CONC 30.9 g/dL (32.0-36.0); Mean Corpuscular Hemoglobin 32.3 pg (27.0-31.0); Platelet Count 209 thou/uL (130-400); RBC Distribution Width 14.8 % (11.5-14.5); Red Blood Cell (RBC) Count 2.58 mill/uL (4.70-6.10); White Blood Cell (WBC) Count 5.2 thou/uL (4.8-10.8)
[2018-11-20 05:05] LABS: Anion Gap 12 mmol/L (10-20); BUN (Urea Nitrogen) 18 mg/dL (8.4-25.7); Calc. Creatinine Clearance 143 mL/min (70-130); Carbon Dioxide 29 mmol/L (23-31); Chloride 98 mmol/L (98-107); Estimated GFR-MDRD 70; Glucose 162 mg/dL (80-115); Potassium 3.7 mmol/L (3.5-5.1); Sodium 135 mmol/L (136-145)
--- NOTE | 2018-11-20 08:41 | PDOC.PN ---
- Subjective Encounter Start Date: 11/20/18 (f/u heart failure) Encounter Start Time: 08:36 Subjective: Pt reports his breathing is better, has some shortness of breath -: with ambulation. Denies any chest pain - Objective Resuscitation Status - Order Detail: 11/18/18 09:00 Resuscitation Status Routine Resuscitation Status: FULL: Full Resuscitation Vital Signs & Weight: Vital Signs (12 hours) Temp Pulse Resp BP Pulse Ox 11/20/18 07:46 97.8 F 95 15 122/57 L 93 L 11/20/18 03:51 98 F 90 21 H 109/57 L 92 L 11/19/18 23:56 97.9 F 93 20 112/64 92 L Weight Admit Weight 349 lb Weight 320 lb 4 oz I&O: 11/19/18 11/20/18 11/21/18 06:59 06:59 06:59 Intake Total 990 1350 Output Total 4325 2025 Balance -3335 -515 Result Diagrams: 11/20/18 04:26 11/20/18 04:26 Additional Labs: Accuchecks 11/19/18 11/19/18 11/19/18 20:21 17:42 12:07 POC Glucose 258 H 179 H 174 H EKG Reviewed by me: Yes (tele - sinus 60-90's, 24 beats PAT) Phys Exam - Physical Examination Constitutional: NAD Respiratory: no wheezing, no rales, no rhonchi distant breath sounds Cardiovascular: RRR, no significant murmur Gastrointestinal: soft, non-tender, no distention, positive bowel sounds 1+ pitting edema in ankles Neurological: non-focal, moves all 4 limbs Psychiatric: normal affect Dx/Plan (1) Diastolic heart failure Code(s): I50.30 - UNSPECIFIED DIASTOLIC (CONGESTIVE) HEART FAILURE Status: Acute Qualifiers: Heart failure chronicity: acute Qualified Code(s): I50.31 - Acute diastolic (congestive) heart failure (2) Anemia Code(s): D64.9 - ANEMIA, UNSPECIFIED Status: Acute (3) Diabetes mellitus Code(s): E11.9 - TYPE 2 DIABETES MELLITUS WITHOUT COMPLICATIONS Status: Chronic Qualifiers: Diabetes mellitus type: type 2 (4) Renal mass Code(s): N28.89 - OTHER SPECIFIED DISORDERS OF KIDNEY AND URETER Status: Acute (5) Wound of skin Code(s): T14.8XXA - OTHER INJURY OF UNSPECIFIED BODY REGION, INITIAL ENCOUNTER Status: Acute - Plan * * diastolic heart failure - lasix d/c yesterday due to low bp's and ponce-i lowered. * improved bp's today - will order some low dose lasix as pt still oxygen requiring with JONES * appreciate Cardiology consult * beta-dequan, ponce-i, statin * DM - resume metformin * bp's normal * continue selective home meds * wound care to gluteal ulcers - present on admission * * dvt prophy - scds * gi prophy - not indicated * code status full * * reviewed plan of care with patient, no questions or further needs at end of eval * anticipate home in the next few days. Has home health for support.
[2018-11-20] MEDS ORDERED: Furosemide 20 MG/2 ML VIAL SLOW IVP SCH (09:00)
[2018-11-20] MEDS ORDERED: metFORMIN 500 MG TAB PO SCH (09:30)
[2018-11-20] MEDS: Cyanocobalamin (Vitamin B-12) 1,000 MCG TAB PO SCH (09:54)
[2018-11-20] MEDS: Folic Acid 1 MG TAB PO SCH (09:54)
[2018-11-20] MEDS: Carvedilol 3.125 MG TAB PO SCH ×2 (09:55→20:17)
[2018-11-20] MEDS: Aspirin 81 mg Enteric Coated Tablet PO SCH (09:56)
[2018-11-20] MEDS: Tamsulosin HCl 0.4 MG CAP PO SCH (09:56)
[2018-11-20] MEDS: Docusate 100 MG CAP PO SCH ×2 (09:56→23:18)
[2018-11-20] MEDS: Senokot S 8.6-50 MG TAB PO SCH ×2 (09:57→23:18)
[2018-11-20] MEDS: Polyethylene Glycol 3350 17 GM Packet PO SCH (09:57)
[2018-11-20] MEDS: Lisinopril 2.5 MG TAB PO SCH (11:13)
--- NOTE | 2018-11-20 13:58 | PQF ---
CLINICAL DOCUMENTATION IMPROVEMENT CLARIFICATION FORM: ICD-10 Updated PLEASE DO AN ADDENDUM TO THE PROGRESS NOTE WITH ANY DOCUMENTATION UPDATES OR ADDITIONS AND CARRY THROUGH TO DC SUMMARY. THANK YOU. DATE: 11/20/2018 ATTN: Dr. Fiona Medrano Please exercise your independent, professional judgment in responding to the clarification form. Clinical indicators are provided on the bottom of this form for your review Please check appropriate box(s): [ xx ] I (concur) with the Wound Care findings as stated below. [ ] Pressure Ulcer: (Stage I: Erythema; Stage II: Partial thickness; Stage III : Full thickness; Stage IV: Necrosis to muscle/bone) [ ] Location: Stage (I to IV): (Left Right Bilateral__ ___ N/A ) [ ] Location: Stage (I to IV): (Left Right Bilateral__ ___ N/A ) [ ] No pressure ulcer diagnosis [ ] Other diagnosis [ ] Unable to determine For continuity of documentation, please document condition throughout progress notes and discharge summary. Thank You. CLINICAL INDICATORS - SIGNS / SYMPTOMS / LABS Wound Care Assessment: 11/18: L buttock Pressure Ulcer. Stage II PN 11/19: Wound care to gluteal ulcers - present on admission. RISKS: H&P 11/17: Hx of HTN, DM, recent lap phong, right renal mass awaiting surgery. New onset heart failure with known diastolic dysfunction. Gluteal wound. TREATMENT: Order 11/18: Consult: Wound Care Eval / Treat buttock wound. Wound Care Assessment 11/18: Follow Nursing Wound Care protocol. Cleanse with NS , keep area clean and dry, apply barrier cream, cover w/ foam composite dsg. Pre-ulcer skin changes limited to persistent focal edema (Stage 1) Abrasion, blister, partial thickness skin loss involving epidermis and/or dermis (Stage 2) Full thickness skin loss involving damage or necrosis of SQ tissue. (Stage 3) Necrosis of soft tissue through to underlying muscle, tendon, or bone. (Stage 4) Purple or maroon discolored skin or blood filled blister Thank you, Jenni (This form is maintained as a part of the permanent medical record) 2015 [employer] All Rights Reserved Jenni Carmichael RN, BSN [email or web address] Office: [phone] [facility] CENTERAbel
--- NOTE | 2018-11-20 14:05 | PRG ---
DATE OF SERVICE: SUBJECTIVE: Mr. Castillo is doing well. His shortness of breath has improved. He continues to diurese. OBJECTIVE: VITAL SIGNS: Blood pressure 150/65, pulse 98, temperature 99.3. I's and O's -675. He has lost almost 10 pounds since admission. LUNGS: Decrease in crackles noted bilaterally. HEART: Regular rate and rhythm. ABDOMEN: Soft, nontender, nondistended. EXTREMITIES: Improved edema. PERTINENT LABORATORY DATA: Hemoglobin 8.3. Creatinine 1.06. IMPRESSION: Acute on chronic diastolic heart failure. RECOMMENDATIONS: Continue Coreg, atorvastatin, and aspirin. He is also on lisinopril. We would recommend discontinuing Lasix and place p.o. Lasix. Anticipate discharge in a.m. from a CV standpoint. Job ID: [id number]
[2018-11-20] MEDS: metFORMIN 500 MG TAB PO SCH (18:00)
[2018-11-20] MEDS: Atorvastatin Calcium 10 MG TAB PO SCH (20:17)
[2018-11-21 04:43] LABS: #Eosinphils 0.1 thou/uL (0.0-0.7); #Lymphocytes 1.4 thou/uL (1.20-3.40); #Monocytes 0.7 thou/uL (0.11-0.59); #Neutrophils 3.7 thou/uL (1.40-6.50); %Basophils 0.1 % (0.0-1.0); %Eosinophils 2.4 % (0.0-10.0); %Lymphocytes 22.9 % (21.0-51.0); %Monocytes 11.5 % (0.0-10.0); %Neutrophils 63.1 % (42.0-75.0); Hemoglobin 8.2 g/dL (14.0-18.0); Mean Corpuscular Hemoglobin 32.7 pg (27.0-31.0); Platelet Count 200 thou/uL (130-400); RBC Distribution Width 14.5 % (11.5-14.5); White Blood Cell (WBC) Count 5.9 thou/uL (4.8-10.8)
[2018-11-21 05:02] LABS: Anion Gap 14 mmol/L (10-20); BUN (Urea Nitrogen) 19 mg/dL (8.4-25.7); Calc. Creatinine Clearance 161 mL/min (70-130); Calcium 8.1 mg/dL (7.8-10.44); Carbon Dioxide 27 mmol/L (23-31); Chloride 98 mmol/L (98-107); Estimated GFR-MDRD 81; Glucose 170 mg/dL (80-115); Potassium 3.9 mmol/L (3.5-5.1); Sodium 135 mmol/L (136-145)
[2018-11-21] MEDS: Lisinopril 2.5 MG TAB PO SCH (08:38)
[2018-11-21] MEDS: Aspirin 81 mg Enteric Coated Tablet PO SCH (08:39)
[2018-11-21] MEDS: Tamsulosin HCl 0.4 MG CAP PO SCH (08:39)
[2018-11-21] MEDS: metFORMIN 500 MG TAB PO SCH ×2 (08:39→17:21)
[2018-11-21] MEDS: Carvedilol 3.125 MG TAB PO SCH ×2 (08:39→20:52)
[2018-11-21] MEDS: Cyanocobalamin (Vitamin B-12) 1,000 MCG TAB PO SCH (08:39)
[2018-11-21] MEDS: Folic Acid 1 MG TAB PO SCH (08:39)
[2018-11-21] MEDS: Docusate 100 MG CAP PO SCH ×2 (08:40→20:52)
[2018-11-21] MEDS: Polyethylene Glycol 3350 17 GM Packet PO SCH (08:40)
[2018-11-21] MEDS: Senokot S 8.6-50 MG TAB PO SCH ×2 (08:40→20:52)
[2018-11-21] MEDS ORDERED: Furosemide 40 MG/4 ML VIAL SLOW IVP SCH (13:45)
--- NOTE | 2018-11-21 19:31 | PDOC.PN ---
- Subjective Encounter Start Date: 11/21/18 (f/u heart failure) Encounter Start Time: 13:30 Subjective: Pt reports he is feeling well, able to walk without oxygen. Denies any -: chest pain, n/v/abd pain. Some JONES - Objective Resuscitation Status - Order Detail: 11/18/18 09:00 Resuscitation Status Routine Resuscitation Status: FULL: Full Resuscitation Vital Signs & Weight: Vital Signs (12 hours) Temp Pulse Pulse Pulse Resp BP BP 11/21/18 15:53 98.4 F 106 H 20 11/21/18 11:46 98.1 F 110 H 20 11/21/18 10:28 115 H 82 150/65 H 111/65 11/21/18 08:38 100 11/21/18 08:00 97.9 F 100 18 BP BP Pulse Ox Pulse Ox Pulse Ox 11/21/18 15:53 138/64 94 L 11/21/18 11:46 109/55 L 94 L 11/21/18 10:28 92 L 95 11/21/18 08:38 11/21/18 08:00 132/69 93 L Weight Admit Weight 349 lb Weight 319 lb 9 oz I&O: 11/20/18 11/21/18 11/22/18 06:59 06:59 06:59 Intake Total 1350 1280 1200 Output Total 2025 200 1090 Balance -675 1080 110 Result Diagrams: 11/21/18 04:23 11/21/18 04:23 Additional Labs: Accuchecks 11/21/18 11/21/18 11/21/18 16:53 10:49 05:15 POC Glucose 184 H 172 H 190 H 11/20/18 20:22 POC Glucose 216 H EKG Reviewed by me: Yes (tele - sinus 60-125) Phys Exam - Physical Examination Constitutional: NAD Respiratory: no wheezing, no rhonchi decreased breath sounds on right side with faint basilar rales Cardiovascular: RRR, no significant murmur Gastrointestinal: soft, non-tender, no distention, positive bowel sounds 1+ edema bilateral Neurological: non-focal, moves all 4 limbs Psychiatric: normal affect Dx/Plan (1) Diastolic heart failure Code(s): I50.30 - UNSPECIFIED DIASTOLIC (CONGESTIVE) HEART FAILURE Status: Acute Qualifiers: Heart failure chronicity: acute Qualified Code(s): I50.31 - Acute diastolic (congestive) heart failure (2) Anemia Code(s): D64.9 - ANEMIA, UNSPECIFIED Status: Acute (3) Diabetes mellitus Code(s): E11.9 - TYPE 2 DIABETES MELLITUS WITHOUT COMPLICATIONS Status: Chronic Qualifiers: Diabetes mellitus type: type 2 (4) Renal mass Code(s): N28.89 - OTHER SPECIFIED DISORDERS OF KIDNEY AND URETER Status: Acute (5) Skin ulcer Code(s): L98.499 - NON-PRESSURE CHRONIC ULCER OF SKIN OF SITES W UNSP SEVERITY Status: Chronic Qualifiers: Non-pressure ulcer stage: limited to breakdown of skin Qualified Code(s): L98.491 - Non-pressure chronic ulcer of skin of other sites limited to breakdown of skin - Plan * diastolic heart failure - continues to improve - still signs of pulm edema along right side of chest * appreciate Cardiology consult - d/w Dr. Pichardo and 1 dose of lasix IV today, with plan for oral lasix tomorrow * beta-dequan, ponce-i, statin * DM - metformin and SSI * bp's normal * continue selective home meds * wound care to gluteal ulcers - present on admission * * Recommend checking oxygen sats with ambulation to see if pt needs/qualifies for home oxygen. Presented idea to patient, he will consider it. * * dvt prophy - scds * gi prophy - not indicated * code status full * * reviewed plan of care with patient, no questions or further needs at end of eval * anticipate home tomorrow. Has home health for support *
--- NOTE | 2018-11-21 20:11 | PRG ---
DATE OF SERVICE: 11/21/2018 SUBJECTIVE: Mr. Castillo is doing better. He continues to diurese. His initial weight was 329 upon arrival. His weight today is 319. Lasix was discontinued due to hypotension. He continues to complain of shortness of breath, although states this has improved. He states his oxygen level dropped with ambulation today. OBJECTIVE: VITAL SIGNS: Blood pressure 130/64, pulse 106, and temperature 98.4. LUNGS: Decreased breath sounds on right versus left. Otherwise clear. HEART: Regular rate and rhythm. ABDOMEN: Soft, nontender, nondistended. EXTREMITIES: No edema. PERTINENT LABORATORY DATA: Hemoglobin 8.2. Creatinine 0.94. Chest x-ray dated 11/17 with elevation of right hemidiaphragm and CHF type findings. IMPRESSION: 1. Acute on chronic diastolic heart failure. 2. Elevated right hemidiaphragm. 3. Renal mass. RECOMMENDATIONS: We will attempt to continue diuresis. His creatinine appears stable. I did discuss with Dr. Fiona Medrano the hypoxia with exercise. We will rechallenge and reassess. His creatinine and BUN also appear stable. Decreased breath sounds on the right likely related to elevated hemidiaphragm. I would likely switch to p.o. if stable in a.m. Anticipate discharge soon. Job ID: [id number]
[2018-11-21] MEDS: Atorvastatin Calcium 10 MG TAB PO SCH (20:52)
[2018-11-22 04:46] LABS: #Eosinphils 0.2 thou/uL (0.0-0.7); #Lymphocytes 1.3 thou/uL (1.20-3.40); #Monocytes 0.7 thou/uL (0.11-0.59); #Neutrophils 4.1 thou/uL (1.40-6.50); %Basophils 0.2 % (0.0-1.0); %Eosinophils 3.7 % (0.0-10.0); %Lymphocytes 20.8 % (21.0-51.0); %Monocytes 10.6 % (0.0-10.0); %Neutrophils 64.6 % (42.0-75.0); Hemoglobin 8.4 g/dL (14.0-18.0); Mean Corpuscular HGB CONC 31.9 g/dL (32.0-36.0); Mean Corpuscular Hemoglobin 33.1 pg (27.0-31.0); Mean Platelet Volume 7.6 fL (7.4-10.4); Platelet Count 195 thou/uL (130-400); RBC Distribution Width 14.4 % (11.5-14.5); Red Blood Cell (RBC) Count 2.53 mill/uL (4.70-6.10); White Blood Cell (WBC) Count 6.3 thou/uL (4.8-10.8)
[2018-11-22 05:04] LABS: Anion Gap 15 mmol/L (10-20); BUN (Urea Nitrogen) 19 mg/dL (8.4-25.7); Calc. Creatinine Clearance 171 mL/min (70-130); Calcium 8.5 mg/dL (7.8-10.44); Carbon Dioxide 26 mmol/L (23-31); Chloride 99 mmol/L (98-107); Estimated GFR-MDRD 89; Glucose 175 mg/dL (80-115); Potassium 4.1 mmol/L (3.5-5.1); Sodium 136 mmol/L (136-145)
[2018-11-22] MEDS: Carvedilol 3.125 MG TAB PO SCH (08:42)
[2018-11-22] MEDS: metFORMIN 500 MG TAB PO SCH (08:42)
[2018-11-22] MEDS: Aspirin 81 mg Enteric Coated Tablet PO SCH (08:42)
[2018-11-22] MEDS: Lisinopril 2.5 MG TAB PO SCH (08:42)
[2018-11-22] MEDS: Folic Acid 1 MG TAB PO SCH (08:42)
[2018-11-22] MEDS: Tamsulosin HCl 0.4 MG CAP PO SCH (08:43)
[2018-11-22] MEDS: Cyanocobalamin (Vitamin B-12) 1,000 MCG TAB PO SCH (08:43)
[2018-11-22] MEDS: Polyethylene Glycol 3350 17 GM Packet PO SCH (08:43)
[2018-11-22] MEDS: Senokot S 8.6-50 MG TAB PO SCH (08:43)
[2018-11-22] MEDS: Docusate 100 MG CAP PO SCH (08:43)
[2018-11-22 11:27] VITALS: TEMP 98.3
[2018-11-22 11:35] VITALS: BP 135/70
[2018-11-22] MEDS ORDERED: Furosemide 40 MG TAB PO SCH (12:30)
== END 2018-11-22 15:00 | disposition home health service (06) | DRG 293 ==
LOC: ERS 18:12 → 2NO 20:48
PROVIDERS: ADMIT Internal Medicine; ATTEND Internal Medicine
DX: I11.0 Hypertensive heart disease with heart failure (principal); I50.33 Acute on chronic diastolic (congestive) heart failure; M19.90 Unspecified osteoarthritis, unspecified site; E11.9 Type 2 diabetes mellitus without complications; K21.9 Gastro-esophageal reflux disease without esophagitis; E78.5 Hyperlipidemia, unspecified; F17.220 Nicotine dependence, chewing tobacco, uncomplicated; N28.89 Other specified disorders of kidney and ureter; R20.2 Paresthesia of skin; D64.9 Anemia, unspecified; L89.322 Pressure ulcer of left buttock, stage 2; J98.6 Disorders of diaphragm; Z88.0 Allergy status to penicillin; Z90.49 Acquired absence of other specified parts of digestive tract; Z79.84 Long term (current) use of oral hypoglycemic drugs; Z79.82 Long term (current) use of aspirin; Z79.899 Other long term (current) drug therapy
CPT/HCPCS: 36415; 36416; 71045; 71275; 80048; 80053; 81003; 81015; 82274; 82607; 82728; 82746; 83540; 83550; 83605; 83880; 84443; 84484; 85025; 86850; 86900; 86901; 87040; 87086; 93005; 93306; 93798; 94760; 96374; J1940; Q9966